=== PATIENT | male | born 1965 | race Caucasian/White ===

== ENCOUNTER 2018-11-10 09:00 | Outpatient (RCR) | payer BC, SELFPAY ==
[2018-10-13 11:22] VITALS: RESP 18
--- NOTE | 2018-10-13 13:07 | PCM.WC.PN ---
(1) Chronic ulcer of left foot with fat layer exposed Status: Chronic Current Visit: Yes Code(s): L97.522 - Non-pressure chronic ulcer of other part of left foot with fat layer exposed (2) Hammertoe of left foot Status: Chronic Current Visit: Yes Code(s): M20.42 - Other hammer toe(s) (acquired), left foot (3) Type 1 diabetes, uncontrolled, with neuropathy Status: Chronic Current Visit: Yes Code(s): E10.40 - Type 1 diabetes mellitus with diabetic neuropathy, unspecified; E10.65 - Type 1 diabetes mellitus with hyperglycemia (4) Malnutrition Status: Chronic Current Visit: Yes Code(s): E46 - Unspecified protein-calorie malnutrition (5) Other specified peripheral vascular diseases Status: Suspected Current Visit: Yes Code(s): I73.89 - Other specified peripheral vascular diseases (6) Delayed wound healing Status: Chronic Current Visit: Yes Code(s): T14.8XXD - Other injury of unspecified body region, subsequent encounter Type of Wound Date of Service: 10/13/18 Chief Complaint: Left foot ulcer History of Wound: This 52-year-old male with diabetes presented to the wound healing center for right ball of foot ulcer with an onset of over 1 month ago. He was walking in the sand in [place] and noticed drainage and opening. He also placed his glasses in his shoe and forgot they were in there for almost a day. He has been applying hydrogel to the ulcer site and continues to walk around in his athletic sneaker AGAINST MEDICAL ADVICE. He denies fever, chill, nausea, vomiting. He denies claudication. He does have rest paresthesias to the limbs. He does have a history of previous foot ulcers with recurrence and infection and delayed healing. Progress of Wound: Stable - Physical Exam Vital Signs Resp 18 10/13/18 11:22 General: Alert, Oriented x3, Cooperative, No apparent distress HEENT: Atraumatic Extremities: No cyanosis, No edema, Capillary Refill Less than 3 Seconds - All digits bilateral, No Calf Tenderness - Negative Brianna and Carter sign bilateral. Compartments remain soft to palpate bilateral lower extremities, Peripheral Pulses Normal - 2 out of 4 PT and DP pulses bilateral Skin: Ulcer/ Wound - No purulence, erythema, streaking, odor, infection. The ulcer bed is granular and pale. The peripheral skin is hairless and atrophic. Wound Measurements and Assessment - Nurse 1 - General Ulcer Measurement Start: 10/13/18 11:11 Freq: Status: Active Protocol: Activity Type Activity Date Activity User E-Sign Co-Sign Detail Recorded Client Recorded Date Recorded By Document 10/13/18 11:22 RI [id number] 10/13/18 11:37 RI 10/13/18 11:22 Wound Center Nurse 1 [Ulcer Assessment] #1 Left Plantar Cluster -Current Size (cm) - Length 3.5 -Current Size (cm) - Width 5.0 -Current Size (cm) - Depth 0.2 -Total Square Cm 17.50 -Date of Last Picture (Recall this 10/13/18 field) -Photo Taken Yes -Exudate Amt Small -Exudate Type Serous -Wound Margin Thickened & Rolled Under -Granulation Amt Large (67-100%) -Granulation Quality Pale,Red -Texture (Tanesha-wound Skin Appearance) Assessed,Callus -Moisture (Tanesha-wound Skin Appearance Assessed ) -Color (Tanesha-wound Skin Appearance) Assessed -Temperature (Tanesha-wound Skin No Abnormality Appearance) (Pt Warm) -Tenderness on Palpation (Tanesha-wound No Skin Appearance) -Ulcer Cleansing Rinsed/ Irrigated with Saline -Foul Odor after Cleansing No -Anesthetic Used 5% Lidocaine Gel - Nurse 2 - General Ulcer CM Notes Start: 10/13/18 11:11 Freq: Status: Active Protocol: Activity Type Activity Date Activity User E-Sign Co-Sign Detail Recorded Client Recorded Date Recorded By Document 10/13/18 11:49 [id number] 10/13/18 11:57 10/13/18 11:49 Wound Center Nurse 2 [Procedure/Treatment] -Time 11:49 -Correct Patient Yes -Correct Side, Site, Position Yes -Correct Procedure Yes -Procedure Performed Yes -Type of Procedure Debridement -Clinical Debridement Subcutaneous -Post Debridement Size (cm) - Length 1.9 -Post Debridement Size (cm) - Width 1.7 -Post Debridement Size (cm) - Depth 0.2 -Total Square Cm 3.23 -Wound/Ulcer Outcome Not Healed -Ulcer Cleansing Rinsed/ Irrigated with Saline -Foul Odor after Cleansing No -Bioengineered Tissue No -Bleeding Controlled with Pressure -Offloading Yes -Type of Offloading Total Contact Cast (TCC) -Treatment Response Procedure Tolerated Well [See Physician Procedure note for Specifics] Pain Scale: 0-10 Numeric [Pain] -Is Patient Pain Free? Yes Musculoskeletal: No Tenderness to Palpation of Joints or Extremities, Muscle Wasting, - - Dorsal contraction of lesser digits with prominent metatarsal head Neurological: - - Lack of epicritic sensation light touch consistent with neuropathy Psych/Mental Status: Normal Affect, Appropriate Debridement Note Post-Debridement Measurements/Treatment WC - Nurse 2 - General Ulcer CM Notes Start: 10/13/18 11:11 Freq: Status: Active Protocol: Activity Type Activity Date Activity User E-Sign Co-Sign Detail Recorded Client Recorded Date Recorded By Document 10/13/18 11:49 JF [id number] 10/13/18 11:57 [email or web address] 10/13/18 11:49 Wound Center Nurse 2 #1 Left Plantar Cluster -Time 11:49 -Correct Patient Yes -Correct Side, Site, Position Yes -Correct Procedure Yes -Procedure Performed Yes -Type of Procedure Debridement -Clinical Debridement Subcutaneous -Post Debridement Size (cm) - Length 1.9 -Post Debridement Size (cm) - Width 1.7 -Post Debridement Size (cm) - Depth 0.2 -Total Square Cm 3.23 -Wound/Ulcer Outcome Not Healed -Ulcer Cleansing Rinsed/ Irrigated with Saline -Foul Odor after Cleansing No -Bioengineered Tissue No -Bleeding Controlled with Pressure -Offloading Yes -Type of Offloading Total Contact Cast (TCC) -Treatment Response Procedure Tolerated Well Pain Scale: 0-10 Numeric Is Patient Pain Free? Yes Wound debrided: plantar foot Laterality: Left Wound Grade/Stage: grade 1 Type of Debridement: Excisional debridement Anesthesia Used: 5% Lidocaine Gel Depth: in the subcutaneous layer Percentage of wound debrided: 100 Instrument Used: #15 blade Tissue Removed: fibrous, devitalized subcutaneous, biofilm, slough Severity: Fat Layer Exposed Amount of bleeding with debridement: Mild Bleeding Controlled with: Pressure Patient tolerated procedure well Assessment/Plan Active Problems (Last Updated 10/13/18 @ 12:23 by Soumya Quiroga) Chronic ulcer of left foot with fat layer exposed (Chronic) Hammertoe of left foot (Chronic) Type 1 diabetes, uncontrolled, with neuropathy (Chronic) Malnutrition (Chronic) Delayed wound healing (Chronic) Assessment: Left foot ulcer grade 1, no infection. rule out small vessel disease or proximal occlusion of peripheral vascular disease. Hammer digit syndrome left foot. Delayed healing. Malnutrition. Type 1 diabetes with peripheral neuropathy Plan: I reviewed and discussed his case and his previous work-up. I referred him from the foot and ankle center. Subcutaneous excisional debridement was performed as on the clinical panel. Eleni was applied as well as a total contact cast. He does have strong palpable DP and PT pulses with no evidence of critical limb ischemia. The total contact cast applied according to standard protocol and well-padded manner. He tolerated this well and verbally consented. To keep this clean, dry, and intact until follow-up next week. I recommend application of advanced wound healing product, epi fix. The indication, purpose, planned application, anticipated healing time and management, risk, complications were discussed in detail. He understands and elects to proceed at this time. Prior authorization will be initiated. He understands it would be helpful if he can help obtain his medical documentation from the hospital he was seen at in [place]; this will be pursued. It is noted this is a chronic wound over 1 month duration and there is delayed healing. This is medically necessary for limb salvage. I recommend updating his basic lab work including CBC, CMP, hemoglobin A1c, and prealbumin. A foot x-ray was also ordered due to the chronicity of this ulcer. I do also recommend noninvasive vascular studies to screen for small vessel disease or proximal abnormalities. I will follow-up with these test results when he returns to clinic next week. He is reassured no local signs of infection or new ulcer sites are noted. I have prescribed him Daniel nutritional supplementation optimize healing. The purpose was described. I answered his questions. To return to the wound healing center 1 week or call sooner if there are any questions or concerns.
--- NOTE | 2018-10-15 14:50 | RAD_ITS ---
HISTORY: Third degree strauss to bottom of foot occurred end of August 2018. EXAM/TECHNIQUE: XR Foot Min 3 Views: Left. COMPARISON: None. FINDINGS: # of images incl. paperwork: 3 No fracture or dislocation or osseous destruction. Alignment anatomic. Mild degenerative changes. No acute findings in the soft tissues. Bandaging material obscures underlying detail. Calcific atherosclerosis. Plantar calcaneal spur. RAD/Foot min 3 Views IMPRESSION: No acute findings. at 2031 Reported and signed by: Jaiden Hackett MD Electronically Signed: Jaiden Hackett, at 20:30 EDT Tel , Service support ,
[2018-10-15 15:25] LABS: Absolute Lymphocyte Count 0.98 X10^3/ul (0.83-4.51); Absolute Neutrophil Count 3.1 X10^3/uL (2.0-7.7); Eosinophil# 0.15 X10^3/uL; Eosinophils% 3.2 % (0-5); Hematocrit 40.6 % (40-54); Hemoglobin 13.5 g/dl (13.0-16.5); Lymphocyte # 0.98 X10^3/ul (4.0); Lymphocyte % 21.1 % (19-41); Mean Corp Hgb Conc 33.3 g/gl (32-36); Mean Corpuscular Volume 87.3 fL (80-94); Monocyte# 0.45 X10^3/uL; Monocyte% 9.7 % (0-10); Neutrophil # 3.06 X10^3/uL (2.7-7.7); Neutrophil % 65.8 % (47-70); Platelet Count 161 K/mm3 (150-450); RBC Distribution Width CV 13.2 % (11.6-14.6); RBC Distribution Width SD 42.1 fl (35.1-43.9); Red Blood Count 4.65 M/mm3 (4.6-6.2); White Blood Count 4.7 K/mm3 (4.4-11.0)
[2018-10-15 15:46] LABS: Hemoglobin A1c 10.9 % (4.2-6.3)
[2018-10-15 15:47] LABS: POSITIVE COUNT NO; POSITIVE DIFFERENTIAL NO; POSITIVE MORPHOLOGY NO
[2018-10-15 16:41] LABS: ALB/GLOB Ratio 1.2 RATIO (0.9-2.4); AST(SGOT) 29 U/L (15-37); Alanine Aminotransfer ALT/SGPT 41 U/L (16-61); Albumin, Serum 3.5 g/dL (3.2-5.0); Alkaline Phosphatase 85 U/L (45-117); Anion Gap 8 (5-15); BUN 16 mg/dL (7-18); BUN/Creat Ratio 15.5 RATIO (10-20); Chloride 100 mmol/L (98-107); Creatinine, Serum 1.03 mg/dL (0.70-1.30); EST Glomerular Filtration Rate 81 mL/min (>60); Est Glom Filt Rate - Afr Amer 98 mL/min (>60); Globulin 2.8 g/dL (2.2-4.2); Glucose 260 mg/dL (74-106); Potassium 4.6 mmol/L (3.5-5.1); Prealbumin 19.2 mg/dL (20.0-40.0); Protein, Total 6.3 g/dL (6.4-8.2); Sodium Level 139 mmol/L (136-145)
[2018-10-20 10:58] VITALS: BP 120/71; PULSE 66; RESP 18; TEMP 36.7
--- NOTE | 2018-10-20 11:27 | PN.PCM_ITS ---
(1) Chronic ulcer of left foot with fat layer exposed Status: Chronic Current Visit: Yes Code(s): L97.522 - Non-pressure chronic ulcer of other part of left foot with fat layer exposed (2) Hammertoe of left foot Status: Chronic Current Visit: Yes Code(s): M20.42 - Other hammer toe(s) (acquired), left foot (3) Type 1 diabetes, uncontrolled, with neuropathy Status: Chronic Current Visit: Yes Code(s): E10.40 - Type 1 diabetes mellitus with diabetic neuropathy, unspecified; E10.65 - Type 1 diabetes allan litus with hyperglycemia (4) Malnutrition Status: Chronic Current Visit: Yes Code(s): E46 - Unspecified protein- calorie malnutrition (5) Other specified peripheral vascular diseases Status: Suspected Current Visit: Yes Code(s): I73.89 - Other specified peripheral vascular diseases (6) Delayed wound healing Status: Chronic Current Visit: Yes Code(s): T14.8XXD - Other injury of unspecified body region, subsequent encounter (7) Hammer toe of left foot Status: Chronic Current Visit: Yes Code(s): M20.42 - Other hammer toe(s) (acquired), left foot Type of Wound Date of Service: 10/20/18 Chief Complaint: Left foot ulcer History of Wound: This 52-year-old male with diabetes presented to the wound healing center for right ball of foot ulcer with an onset of over 1 month ago. He was walking in the sand in [place] and noticed drainage and opening. He also placed his glasses in his shoe and forgot they were in there for almost a day. He kept his total contact cast intact left lower extremity last week. He denies fever, chill, nausea, vomiting, new injuries, redness or odor. Progress of Wound: Improving - Physical Exam Vital Signs Temp Pulse Resp BP 98.1 F 66 18 120/71 10/20/18 10:58 10/20/18 10:58 10/20/18 10:58 10/20/18 10:58 General: Alert, Oriented x3, Cooperative, No apparent distress Extremities: No cyanosis, No edema, Capillary Refill Less than 3 Seconds, No Calf Tenderness - Negative Brianna and Carter bilateral, Diminished Peripheral Pulses, - - No pain with also manipulation and compartments are soft the left foot. There is dorsal contraction of lesser digits with prominent metatarsal head left Skin: Ulcer/ Wound - No purulence, erythema hamstring, odor, infection left. There is peripheral epithelialization noted there is no exposed deep tissue or eschar. The peripheral skin is hairless and atrophic to the left foot. There is no interdigital maceration. Wound Measurements and Assessment WC - Nurse 1 - General Ulcer Measurement Start: 10/13/18 11:11 Freq: Status: Active Protocol: Activity Type Activity Date Activity User E-Sign Co-Sign Detail Recorded Client Recorded Date Recorded By Document 10/20/18 10:58 RB [id number] 10/20/18 11:01 RB 10/20/18 10:58 Wound Center Nurse 1 [Ulcer Assessment] #1 Left Plantar Cluster -Combined with other wound No -Current Size (cm) - Length 0.8 -Current Size (cm) - Width 1.1 -Current Size (cm) - Depth 0.2 -Total Square Cm 0.88 -Photo Taken No -Tunneling No -Undermining/Tunneling No -Circular Undermining No -Exudate Amt Small -Exudate Type Serosanguineous -Wound Margin Thickened -Granulation Amt Large (67-100%) -Granulation Quality Mulberry -Slough/Fibrin Yes -Necrosis Amt Small (1-33%) -Necrotic Tissue Type Adherent Slough -Structure Exposed N/A -Texture (Tanesha-wound Skin Appearance) Assessed,Callus -Moisture (Tanesha-wound Skin Appearance Assessed ) -Color (Tanesha-wound Skin Appearance) Assessed -Temperature (Tanesha-wound Skin No Abnormality Appearance) (Pt Warm) -Tenderness on Palpation (Tanesha-wound No Skin Appearance) -Ulcer Cleansing Wound Cleanser -Foul Odor after Cleansing No -Anesthetic Used 5% Lidocaine Gel - Nurse 2 - General Ulcer CM Notes Start: 10/13/18 11:11 Freq: Status: Active Protocol: Activity Type Activity Date Activity User E-Sign Co-Sign Detail Recorded Client Recorded Date Recorded By Document 10/20/18 11:16 KAMARI [id number] 10/20/18 11:17 KAMARI 10/20/18 11:16 Wound Center Nurse 2 [Procedure/Treatment] -Time 11:17 -Correct Patient Yes -Correct Side, Site, Position Yes -Correct Procedure Yes -Procedure Performed Yes -Type of Procedure Debridement -Clinical Debridement Subcutaneous -Post Debridement Size (cm) - Length 0.9 -Post Debridement Size (cm) - Width 1.2 -Post Debridement Size (cm) - Depth 0.1 -Total Square Cm 1.08 -Wound/Ulcer Outcome Not Healed -Ulcer Cleansing Rinsed/ Irrigated with Saline -Foul Odor after Cleansing No -Bioengineered Tissue No -Bleeding Controlled with Pressure -Offloading No -Treatment Response Procedure Tolerated Well [See Physician Procedure note for Specifics] Pain Scale: 0-10 Numeric [Pain] -Is Patient Pain Free? Yes Musculoskeletal: No Tenderness to Palpation of Joints or Extremities, Muscle Wasting Neurological: - - Lack of normal epicritic sensation light touch consistent with neuropathy left foot Psych/Mental Status: Normal Affect, Appropriate Debridement Note Post-Debridement Measurements/Treatment WC - Nurse 2 - General Ulcer CM Notes Start: 10/13/18 11:11 Freq: Status: Active Protocol: Activity Type Activity Date Activity User E-Sign Co-Sign Detail Recorded Client Recorded Date Recorded By Document 10/13/18 11:49 [id number] 10/13/18 11:57 Document 10/20/18 11:16 [id number] 10/20/18 11:17 10/13/18 10/20/18 11:49 11:16 Wound Center Nurse 2 #1 Left Plantar Cluster -Time 11:49 11:17 -Correct Patient Yes Yes -Correct Side, Site, Position Yes Yes -Correct Procedure Yes Yes -Procedure Performed Yes Yes -Type of Procedure Debridement Debridement -Clinical Debridement Subcutaneous Subcutaneous -Post Debridement Size (cm) - Length 1.9 0.9 -Post Debridement Size (cm) - Width 1.7 1.2 -Post Debridement Size (cm) - Depth 0.2 0.1 -Total Square Cm 3.23 1.08 -Wound/Ulcer Outcome Not Healed Not Healed -Ulcer Cleansing Rinsed/ Rinsed/ Irrigated with Irrigated with Saline Saline -Foul Odor after Cleansing No No -Bioengineered Tissue No No -Bleeding Controlled with Pressure Pressure -Offloading Yes No -Type of Offloading Total Contact Cast (TCC) -Treatment Response Procedure Procedure Tolerated Well Tolerated Well Pain Scale: 0-10 Numeric Is Patient Pain Free? Yes Yes Wound debrided: plantar foot Laterality: Left Wound Grade/Stage: grade 1 Type of Debridement: Excisional debridement Anesthesia Used: 5% Lidocaine Gel Depth: in the subcutaneous layer Percentage of wound debrided: 100 Instrument Used: #15 blade Tissue Removed: Devitalized subcutaneous, fibers, biofilm, slough Severity: Fat Layer Exposed Amount of bleeding with debridement: Mild Bleeding Controlled with: Pressure Patient tolerated procedure well Assessment/Plan Clinical Impression(s) from Imaging Studies Foot X-Ray 10/15/18 14:50 IMPRESSION: No acute findings. at 2031 Reported and signed by: Jaiden Hackett MD Electronically Signed: Jaiden Hackett, at 20:30 EDT Tel , Service support , Active Problems (Last Updated 10/13/18 @ 12:23 by Soumya Quiroga) Chronic ulcer of left foot with fat layer exposed (Chronic) Hammertoe of left foot (Chronic) Type 1 diabetes, uncontrolled, with neuropathy (Chronic) Malnutrition (Chronic) Delayed wound healing (Chronic) Hammer toe of left foot (Chronic) Assessment: Left foot ulcer grade 1, no infection. rule out small vessel disease or proximal occlusion of peripheral vascular disease. Hammer digit syndrome left foot. Delayed healing. Malnutrition. Type 1 diabetes with peripheral neuropathy Plan: I reviewed and discussed his case and his previous work-up. Subcutaneous excisional debridement was performed as on the clinical panel. Eleni was applied as well as a total contact cast. He does have strong palpable DP and PT pulses with no evidence of critical limb ischemia. The total contact cast applied according to standard protocol and well-padded manner. He tolerated this well and verbally consented. To keep this clean, dry, and intact until follow-up next week. I recommend application of advanced wound healing product, epi fix. The indication, purpose, planned application, anticipated healing time and management, risk, complications were discussed in detail. He understands and elects to proceed at this time. Prior authorization will be initiated. His medical record request has been initiated from his emergency room visit in [place] and this is still pending. This application of advanced wound healing product, epi fix, medically necessary for limb salvage. I recommend updating his basic lab work including CBC, CMP, hemoglobin A1c, and prealbumin. This is reviewed with prealbumin of 19.2 and no other gross abnormalities with a CBC or CMP. His hemoglobin A1c was 10.9 and I recommend improved glycemic control. To continue Daniel supplementation optimize healing; this was started. A foot x-ray was also ordered due to the chronicity of this ulcer. No acute fracture dislocations or soft tissue emphysema were identified. Hammertoe contraction is noted as well as small vessel calcification. The total contact cast is also superimposed. I do also recommend noninvasive vascular studies to screen for small vessel disease or proximal abnormalities. This is still in the process of getting scheduled. He is reassured no local signs of infection or new ulcer sites are noted. I have prescribed him Daniel nutritional supplementation optimize healing. The purpose was described. I answered his questions. To return to the wound healing center 1 week or call sooner if there are any questions or concerns.
[2018-10-27 09:37] VITALS: BP 101/71; PULSE 71; RESP 16; TEMP 35.5
--- NOTE | 2018-10-27 13:39 | PN.PCM_ITS ---
(1) Chronic ulcer of left foot with fat layer exposed Status: Chronic Current Visit: Yes Code(s): L97.522 - Non-pressure chronic ulcer of other part of left foot with fat layer exposed (2) Type 1 diabetes, uncontrolled, with neuropathy Status: Chronic Current Visit: Yes Code(s): E10.40 - Type 1 diabetes mellitus with diabetic neuropathy, unspecified; E10.65 - Type 1 diabetes mellitus with hyperglycemia (3) Malnutrition Status: Chronic Current Visit: Yes Code(s): E46 - Unspecified protein- calorie malnutrition (4) Other specified peripheral vascular diseases Status: Suspected Current Visit: Yes Code(s): I73.89 - Other specified peripheral vascular diseases (5) Delayed wound healing Status: Chronic Current Visit: Yes Code(s): T14.8XXD - Other injury of unspecified body region, subsequent encounter (6) Hammer toe of left foot Status: Chronic Current Visit: Yes Code(s): M20.42 - Other hammer toe(s) (acquired), left foot Type of Wound Date of Service: 10/31/18 Chief Complaint: Left foot ulcer History of Wound: This 52-year-old male with diabetes presented to the wound healing center for right ball of foot ulcer with an onset of over 1 month ago. He was walking in the sand in [place] and noticed drainage and opening. He also placed his glasses in his shoe and forgot they were in there for almost a day. He kept his total contact cast intact left lower extremity last week. He denies fever, chill, nausea, vomiting, new injuries, redness or odor. He is scheduled to get noninvasive vascular studies performed tomorrow. Progress of Wound: Improving - Physical Exam Vital Signs Temp Pulse Resp BP 96 F L 71 16 101/71 10/27/18 09:37 10/27/18 09:37 10/27/18 09:37 10/27/18 09:37 General: Alert, Oriented x3, Cooperative, No apparent distress Extremities: No cyanosis, No edema, Capillary Refill Less than 3 Seconds, No Calf Tenderness - Negative Brianna and Carter signs bilateral, Peripheral Pulses Normal, - - Dorsal contraction of lesser digits bilateral with prominent meta tarsal heads Skin: Ulcer/ Wound - No purulence, erythema, streaking, odor, or infection. Peripheral skin is hairless atrophic. Wound Measurements and Assessment WC - Nurse 1 - General Ulcer Measurement Start: 10/13/18 11:11 Freq: Status: Active Protocol: Activity Type Activity Date Activity User E-Sign Co-Sign Detail Recorded Client Recorded Date Recorded By Document 10/27/18 09:37 [facility] [id number] 10/27/18 09:39 [facility] 10/27/18 09:37 Wound Center Nurse 1 [Ulcer Assessment] #1 Left Plantar Cluster -Combined with other wound No -Current Size (cm) - Length 0.8 -Current Size (cm) - Width 1 -Current Size (cm) - Depth 0.2 -Total Square Cm 0.8 -Photo Taken No -Epithelialization Small 1-33% -Tunneling No -Undermining/Tunneling No -Circular Undermining No -Exudate Amt Small -Exudate Type Serous -Wound Margin Flat & Intact -Granulation Amt Large (67-100%) -Granulation Quality [place] -Slough/Fibrin Yes -Necrosis Amt Small (1-33%) -Necrotic Tissue Type Adherent Slough -Texture (Tanesha-wound Skin Appearance) Callus,Scarring -Moisture (Tanesha-wound Skin Appearance Assessed,Dry/ ) Scaly -Color (Tanesha-wound Skin Appearance) Assessed -Temperature (Tanesha-wound Skin No Abnormality Appearance) (Pt Warm) -Tenderness on Palpation (Tanesha-wound No Skin Appearance) -Foul Odor after Cleansing No -Anesthetic Used 5% Lidocaine Gel WC - Nurse 2 - General Ulcer CM Notes Start: 10/13/18 11:11 Freq: Status: Active Protocol: Activity Type Activity Date Activity User E-Sign Co-Sign Detail Recorded Client Recorded Date Recorded By Document 10/27/18 09:44 AN [id number] 10/27/18 09:47 AN 10/27/18 09:44 Wound Center Nurse 2 [Procedure/Treatment] -Time 09:44 -Correct Patient Yes -Correct Side, Site, Position Yes -Correct Procedure Yes -Procedure Performed Yes -Type of Procedure Debridement -Clinical Debridement Subcutaneous -Post Debridement Size (cm) - Length 0.9 -Post Debridement Size (cm) - Width 1.1 -Post Debridement Size (cm) - Depth 0.2 -Total Square Cm 0.99 -Wound/Ulcer Outcome Not Healed -Ulcer Cleansing Rinsed/ Irrigated with Saline -Foul Odor after Cleansing No -Bioengineered Tissue No -Bleeding Controlled with Pressure -Offloading Yes -Type of Offloading Surgical Shoe -Treatment Response Procedure Tolerated Well [See Physician Procedure note for Specifics] Pain Scale: 0-10 Numeric [Pain] -Is Patient Pain Free? Yes Musculoskeletal: No Tenderness to Palpation of Joints or Extremities, Muscle Wasting Neurological: - - Lack of normal epicritic sensation light touch consistent with neuropathy Psych/Mental Status: Normal Affect, Appropriate Debridement Note Post-Debridement Measurements/Treatment WC - Nurse 2 - General Ulcer CM Notes Start: 10/13/18 11:11 Freq: Status: Active Protocol: Activity Type Activity Date Activity User E-Sign Co-Sign Detail Recorded Client Recorded Date Recorded By Document 10/13/18 11:49 [id number] 10/13/18 11:57 JF Document 10/20/18 11:16 JF [id number] 10/20/18 11:17 JF Document 10/27/18 09:44 AN [id number] 10/27/18 09:47 AN 10/13/18 10/20/18 10/27/18 11:49 11:16 09:44 Wound Center Nurse 2 #1 Left Plantar Cluster -Time 11:49 11:17 09:44 -Correct Patient Yes Yes Yes -Correct Side, Site, Position Yes Yes Yes -Correct Procedure Yes Yes Yes -Procedure Performed Yes Yes Yes -Type of Procedure Debridement Debridement Debridement -Clinical Debridement Subcutaneous Subcutaneous Subcutaneous -Post Debridement Size (cm) - Length 1.9 0.9 0.9 -Post Debridement Size (cm) - Width 1.7 1.2 1.1 -Post Debridement Size (cm) - Depth 0.2 0.1 0.2 -Total Square Cm 3.23 1.08 0.99 -Wound/Ulcer Outcome Not Healed Not Healed Not Healed -Ulcer Cleansing Rinsed/ Rinsed/ Rinsed/ Irrigated with Irrigated with Irrigated with Saline Saline Saline -Foul Odor after Cleansing No No No -Bioengineered Tissue No No No -Bleeding Controlled with Pressure Pressure Pressure -Offloading Yes No Yes -Type of Offloading Total Contact Surgical Shoe Cast (TCC) -Treatment Response Procedure Procedure Procedure Tolerated Well Tolerated Well Tolerated Well Pain Scale: 0-10 Numeric Is Patient Pain Free? Yes Yes Yes Wound debrided: plantar foot Laterality: Left Wound Grade/Stage: grade 1 Type of Debridement: Excisional debridement Anesthesia Used: 5% Lidocaine Gel Depth: in the subcutaneous layer Percentage of wound debrided: 100 Instrument Used: #15 blade Tissue Removed: fibrous, devitalized subcutaneous, biofilm, slough Severity: Fat Layer Exposed Amount of bleeding with debridement: Mild Bleeding Controlled with: Pressure Patient tolerated procedure well Assessment/Plan Clinical Impression(s) from Imaging Studies Foot X-Ray 10/15/18 14:50 IMPRESSION: No acute findings. at 2031 Reported and signed by: Jaiden Hackett MD Electronically Signed: Jaiden Hackett, at 20:30 EDT Tel , Service support , Active Problems (Last Updated 10/13/18 @ 12:23 by Soumya Quiroga) Chronic ulcer of left foot with fat layer exposed (Chronic) Hammertoe of left foot (Chronic) Type 1 diabetes, uncontrolled, with neuropathy (Chronic) Malnutrition (Chronic) Delayed wound healing (Chronic) Hammer toe of left foot (Chronic) Assessment: Left foot ulcer grade 1, no infection. rule out small vessel disease or proximal occlusion of peripheral vascular disease. Hammer digit syndrome left foot. Delayed healing. Malnutrition. Type 1 diabetes with peripheral neuropathy Plan: I reviewed and discussed his case and his previous work-up. Subcutaneous excisional debridement was performed as on the clinical panel. Eleni was applied; to change daily. To follow-up with a noninvasive exercise test tomorrow. Therefore, a total contact cast was not applied. This may reconsider next week. Keep weight off this patient with his previous surgical shoe. He r elates he cannot find his surgical shoe and the new one was ordered today. He is reassured no local signs of infection or new ulcer sites are noted. I have prescribed him Daniel nutritional supplementation optimize healing. The purpose was described. I answered his questions. To return to the wound healing center 1 week or call sooner if there are any questions or concerns.
--- NOTE | 2018-10-28 13:02 | ART_ITS ---
Reason For Study: chronic ulcer Left Segmental Pressures Left brachial= 119mmHg. Left posterior tibial artery = 168mmHg. Left dorsalis pedis artery = 205mmHg. Left digit = 119 mmHg. The left dorsalis pedis waveforms are triphasic. The left posterior tibial artery waveforms are triphasic. Right Segmental Pressures Right brachial= 123mmHg. Right posterior tibial artery = 162mmHg. Right digit = 132 mmHg. DPA is noncompressible. The right dorsalis pedis waveforms are triphasic. The right posterior tibial artery waveforms are triphasic. Indices The right ankle brachial index by the posterior tibial artery is 1.32. The right digital-brachial index is 1.07. DPA is noncompressible. The left ankle brachial index by the posterior tibial artery is 1.37. The left ankle brachial index by the dorsalis pedis is 1.67. The left digital-brachial index is .97. Interpretation Summary Triphasic Doppler waveforms are noted at ankle level bilaterally. Pulse-volume recording waveform amplitudes appear satisfactory bilaterally. The resting right ankle-brachial index is normal. The resting left ankle-brachial index is supra-normal. Digital-brachial indices are normal bilaterally. There is no evidence of significant arterial occlusive disease in the lower extremities bilaterally. However, there is evidence of arterial calcification, which may artifactually elevate arterial indices. In this regard, clinical correlation is advised. Ordering Physician: Fransisca Adams Performed By: RICK KAM Wilian
[2018-11-03 09:36] VITALS: BP 97/72; PULSE 69; RESP 16; TEMP 35.5
--- NOTE | 2018-11-03 10:30 | PN.PCM_ITS ---
(1) Chronic ulcer of left foot with fat layer exposed Status: Chronic Current Visit: Yes Code(s): L97.522 - Non-pressure chronic ulcer of other part of left foot with fat layer exposed (2) Type 1 diabetes, uncontrolled, with neuropathy Status: Chronic Current Visit: Yes Code(s): E10.40 - Type 1 diabetes mellitus with diabetic neuropathy, unspecified; E10.65 - Type 1 diabetes mellitus with hyperglycemia (3) Malnutrition Status: Chronic Current Visit: Yes Code(s): E46 - Unspecified protein- calorie malnutrition (4) Other specified peripheral vascular diseases Status: Suspected Current Visit: Yes Code(s): I73.89 - Other specified peripheral vascular diseases (5) Delayed wound healing Status: Chronic Current Visit: Yes Code(s): T14.8XXD - Other injury of unspecified body region, subsequent encounter (6) Hammer toe of left foot Status: Chronic Current Visit: Yes Code(s): M20.42 - Other hammer toe(s) (acquired), left foot Type of Wound Date of Service: 11/05/18 Chief Complaint: Left foot ulcer History of Wound: This 52-year-old male with diabetes presented to the wound healing center for right ball of foot ulcer with an onset of over 1 month ago. He was walking in the sand in [place] and noticed drainage and opening. He also placed his glasses in his shoe and forgot they were in there for almost a day. He defers total contact cast application today. He denies fever, chill, nausea, vomiting, new injuries, redness or odor. He completed noninvasive vascular studies as ordered. Progress of Wound: Improving - Physical Exam Vital Signs Temp Pulse Resp BP 96 F L 69 16 97/72 11/03/18 09:36 11/03/18 09:36 11/03/18 09:36 11/03/18 09:36 General: Alert, Oriented x3, Cooperative, No apparent distress Extremities: No cyanosis, No edema, Capillary Refill Less than 3 Seconds, No Calf Tenderness - Negative Brianna and Carter sign left, Peripheral Pulses Normal - DP bilateral, - - Dorsal contraction of lesser digits and prominent metatarsal head Skin: Ulcer/ Wound - No purulence, erythema, streaking, odor, infection. Peripheral epithelialization is noted. The adjacent skin is hairless and atrophic Wound Measurements and Assessment WC - Nurse 1 - General Ulcer Measurement Start: 10/13/18 11:11 Freq: Status: Active Protocol: Activity Type Activity Date Activity User E-Sign Co-Sign Detail Recorded Client Recorded Date Recorded By Document 11/03/18 09:36 [facility] [id number] 11/03/18 09:40 [facility] 11/03/18 09:36 Wound Center Nurse 1 [Ulcer Assessment] #1 Left Plantar Cluster -Combined with other wound No -Current Size (cm) - Length 0.4 -Current Size (cm) - Width 0.5 -Current Size (cm) - Depth 0.2 -Total Square Cm 0.20 -Photo Taken No -Epithelialization None Present -Tunneling No -Undermining/Tunneling Yes -Undermining/Tunneling Starts (O' 11 clock) -Undermining/Tunneling Ends (O'clock) 4 -Maximum Distance (cm) 0.2 -Circular Undermining No -Exudate Amt None Present -Wound Margin Distinct, Outline Attached -Granulation Amt Large (67-100%) -Granulation Quality [place] -Slough/Fibrin No -Necrosis Amt None Present (0 %) -Texture (Tanesha-wound Skin Appearance) Callus,Scarring -Moisture (Tanesha-wound Skin Appearance Assessed,Dry/ ) Scaly -Color (Tanesha-wound Skin Appearance) Assessed -Temperature (Tanesha-wound Skin No Abnormality Appearance) (Pt Warm) -Tenderness on Palpation (Tanesha-wound No Skin Appearance) -Ulcer Cleansing Rinsed/ Irrigated with Saline -Foul Odor after Cleansing No -Anesthetic Used 5% Lidocaine Gel EZ - Nurse 2 - General Ulcer CM Notes Start: 10/13/18 11:11 Freq: Status: Active Protocol: Activity Type Activity Date Activity User E-Sign Co-Sign Detail Recorded Client Recorded Date Recorded By Document 11/03/18 10:24 AN [id number] 11/03/18 10:25 AN 11/03/18 10:24 Wound Center Nurse 2 [Procedure/Treatment] -Time 10:24 -Correct Patient Yes -Correct Side, Site, Position Yes -Correct Procedure Yes -Procedure Performed Yes -Type of Procedure Debridement -Clinical Debridement Subcutaneous -Post Debridement Size (cm) - Length 0.5 -Post Debridement Size (cm) - Width 0.6 -Post Debridement Size (cm) - Depth 0.2 -Total Square Cm 0.30 -Wound/Ulcer Outcome Not Healed -Ulcer Cleansing Rinsed/ Irrigated with Saline -Foul Odor after Cleansing No -Bioengineered Tissue No -Bleeding Controlled with Pressure -Offloading No -Type of Offloading Surgical Shoe -Treatment Response Procedure Tolerated Well [See Physician Procedure note for Specifics] Pain Scale: 0-10 Numeric [Pain] -Is Patient Pain Free? Yes Musculoskeletal: No Tenderness to Palpation of Joints or Extremities, Muscle Wasting Neurological: - - Lack of normal epicritic sensation light touch consistent with neuropathy Psych/Mental Status: Normal Affect, Appropriate Debridement Note Post-Debridement Measurements/Treatment WC - Nurse 2 - General Ulcer CM Notes Start: 10/13/18 11:11 Freq: Status: Active Protocol: Activity Type Activity Date Activity User E-Sign Co-Sign Detail Recorded Client Recorded Date Recorded By Document 10/13/18 11:49 JF [id number] 10/13/18 11:57 JF Document 10/20/18 11:16 JF [id number] 10/20/18 11:17 JF Document 10/27/18 09:44 AN [id number] 10/27/18 09:47 AN Document 11/03/18 10:24 AN [id number] 11/03/18 10:25 AN 10/13/18 10/20/18 10/27/18 11:49 11:16 09:44 Wound Center Nurse 2 #1 Left Plantar Cluster -Time 11:49 11:17 09:44 -Correct Patient Yes Yes Yes -Correct Side, Site, Position Yes Yes Yes -Correct Procedure Yes Yes Yes -Procedure Performed Yes Yes Yes -Type of Procedure Debridement Debridement Debridement -Clinical Debridement Subcutaneous Subcutaneous Subcutaneous -Post Debridement Size (cm) - Length 1.9 0.9 0.9 -Post Debridement Size (cm) - Width 1.7 1.2 1.1 -Post Debridement Size (cm) - Depth 0.2 0.1 0.2 -Total Square Cm 3.23 1.08 0.99 -Wound/Ulcer Outcome Not Healed Not Healed Not Healed -Ulcer Cleansing Rinsed/ Rinsed/ Rinsed/ Irrigated with Irrigated with Irrigated with Saline Saline Saline -Foul Odor after Cleansing No No No -Bioengineered Tissue No No No -Bleeding Controlled with Pressure Pressure Pressure -Offloading Yes No Yes -Type of Offloading Total Contact Surgical Shoe Cast (TCC) -Treatment Response Procedure Procedure Procedure Tolerated Well Tolerated Well Tolerated Well Pain Scale: 0-10 Numeric Is Patient Pain Free? Yes Yes Yes 11/03/18 10:24 Wound Center Nurse 2 #1 Left Plantar Cluster -Time 10:24 -Correct Patient Yes -Correct Side, Site, Position Yes -Correct Procedure Yes -Procedure Performed Yes -Type of Procedure Debridement -Clinical Debridement Subcutaneous -Post Debridement Size (cm) - Length 0.5 -Post Debridement Size (cm) - Width 0.6 -Post Debridement Size (cm) - Depth 0.2 -Total Square Cm 0.30 -Wound/Ulcer Outcome Not Healed -Ulcer Cleansing Rinsed/ Irrigated with Saline -Foul Odor after Cleansing No -Bioengineered Tissue No -Bleeding Controlled with Pressure -Offloading No -Type of Offloading Surgical Shoe -Treatment Response Procedure Tolerated Well Pain Scale: 0-10 Numeric Is Patient Pain Free? Yes Wound debrided: sub metatarsal head Laterality: Left Wound Grade/Stage: grade 1 Type of Debridement: Excisional debridement Anesthesia Used: 5% Lidocaine Gel Depth: in the subcutaneous layer Percentage of wound debrided: 100 Instrument Used: #15 blade Tissue Removed: fibrous, devitalized subcutaneous, biofilm, slough Severity: Fat Layer Exposed Amount of bleeding with debridement: Mild Bleeding Controlled with: Pressure Patient tolerated procedure well Assessment/Plan Clinical Impression(s) from Imaging Studies Foot X-Ray 10/15/18 14:50 IMPRESSION: No acute findings. at 2031 Reported and signed by: Jaiden Hackett MD Electronically Signed: Jaiden Hackett, at 20:30 EDT Tel , Service support , Active Problems (Last Updated 10/13/18 @ 12:23 by Soumya Quiroga) Chronic ulcer of left foot with fat layer exposed (Chronic) Hammertoe of left foot (Chronic) Type 1 diabetes, uncontrolled, with neuropathy (Chronic) Malnutrition (Chronic) Delayed wound healing (Chronic) Hammer toe of left foot (Chronic) Assessment: Left foot ulcer grade 1, no infection. ruled out small vessel disease or proximal occlusion of peripheral vascular disease. Hammer digit syndrome left foot. Delayed healing. Malnutrition. Type 1 diabetes with peripheral neuropathy Plan: I reviewed and discussed his case and his previous work-up. Subcutaneous excisional debridement was performed as on the clinical panel. Eleni was applied; to change daily. He appears to have adequate perfusion for healing with normal ABIs. The noninvasive vascular studies were discussed in detail with him today. He defers additional application of total contact cast this week is recommended. Keep weight off this patient with his previous surgical shoe. He is reassured no local signs of infection or new ulcer sites are noted. I have prescribed him Daniel nutritional supplementation optimize healing. The purpose was described. I answered his questions. To return to the wound healing center 1 week or call sooner if there are any questions or concerns.
[2018-11-10 09:36] VITALS: BP 93/67; PULSE 75; RESP 14; TEMP 35.7
--- NOTE | 2018-11-10 11:39 | PN.PCM_ITS ---
(1) Chronic ulcer of left foot with fat layer exposed Status: Chronic Code(s): L97.522 - Non-pressure chronic ulcer of other part of left foot with fat layer exposed (2) Type 1 diabetes, uncontrolled, with neuropathy Status: Chronic Code(s): E10.40 - Type 1 diabetes mellitus with diabetic neuropathy, unspecified; E10.65 - Type 1 diabetes mellitus with hyperglycemia (3) Malnutrition Status: Chronic Code(s): E46 - Unspecified protein-calorie malnutrition (4) Other specified peripheral vascular diseases Status: Suspected Code(s): I73.89 - Other specified peripheral vascular diseases (5) Delayed wound healing Status: Chronic Code(s): T14.8XXD - Other injury of unspecified body region, subsequent encounter (6) Hammer toe of left foot Status: Chronic Code(s): M20.42 - Other hammer toe(s) (acquired), left foot Type of Wound Date of Service: 11/13/18 Chief Complaint: Left foot ulcer History of Wound: This 52-year-old male with diabetes returns to the wound healing center for left ball of foot ulcer. He denies fever, chill, nausea, vomiting, new injuries, redness or odor. Progress of Wound: Improving - Physical Exam Vital Signs Temp Pulse Resp BP 96.2 F L 75 14 93/67 11/10/18 09:36 11/10/18 09:36 11/10/18 09:36 11/10/18 09:36 General: Alert, Oriented x3, Cooperative, No apparent distress Extremities: No cyanosis, No edema, Capillary Refill Less than 3 Seconds, No Calf Tenderness, Diminished Peripheral Pulses Skin: Ulcer/ Wound - No purulence, erythema, streaking, odor, or infection. Peripheral epithelialization is noted. Wound Measurements and Assessment WC - Nurse 1 - General Ulcer Measurement Start: 10/13/18 11:11 Freq: Status: Active Protocol: Activity Type Activity Date Activity User E-Sign Co-Sign Detail Recorded Client Recorded Date Recorded By Document 11/10/18 09:36 [id number] 11/10/18 09:37 11/10/18 09:36 Wound Center Nurse 1 [Ulcer Assessment] #1 Left Plantar Cluster -Combined with other wound No -Current Size (cm) - Length 0.1 -Current Size (cm) - Width 0.1 -Current Size (cm) - Depth 0.1 -Total Square Cm 0.01 -Photo Taken No -Epithelialization Large 67-100% -Tunneling No -Undermining/Tunneling No -Circular Undermining No -Exudate Amt None Present -Wound Margin Distinct, Outline Attached -Granulation Amt None Present (0 %) -Granulation Quality N/A -Slough/Fibrin Yes -Necrosis Amt None Present (0 %) -Necrotic Tissue Type Adherent Slough -Structure Exposed None/Limited to Skin Breakdown -Texture (Tanesha-wound Skin Appearance) Callus -Moisture (Tanesha-wound Skin Appearance No Abnormality, ) Assessed -Color (Tanesha-wound Skin Appearance) No Abnormality, Assessed -Temperature (Tanesha-wound Skin No Abnormality Appearance) (Pt Warm) -Tenderness on Palpation (Tanesha-wound No Skin Appearance) -Ulcer Cleansing Rinsed/ Irrigated with Saline -Foul Odor after Cleansing No -Anesthetic Used 4% Lidocaine Solution [Edema Assessment] -Lower Limb Edema Present NA WC - Nurse 2 - General Ulcer CM Notes Start: 10/13/18 11:11 Freq: Status: Active Protocol: Activity Type Activity Date Activity User E-Sign Co-Sign Detail Recorded Client Recorded Date Recorded By Document 11/10/18 09:48 AN [id number] 11/10/18 09:49 AN 11/10/18 09:48 Wound Center Nurse 2 [Procedure/Treatment] #1 Left Plantar Cluster -Time 09:48 -Correct Patient Yes -Correct Side, Site, Position Yes -Correct Procedure Yes -Procedure Performed Yes -Type of Procedure Debridement -Clinical Debridement Subcutaneous -Post Debridement Size (cm) - Length 0.2 -Post Debridement Size (cm) - Width 0.2 -Post Debridement Size (cm) - Depth 0.1 -Total Square Cm 0.04 -Wound/Ulcer Outcome Not Healed -Ulcer Cleansing Rinsed/ Irrigated with Saline -Foul Odor after Cleansing No -Bioengineered Tissue No -Bleeding Controlled with Pressure -Offloading Yes -Type of Offloading Surgical Shoe -Treatment Response Procedure Tolerated Well [See Physician Procedure note for Specifics] Pain Scale: 0-10 Numeric [Pain] -Is Patient Pain Free? Yes Musculoskeletal: No Tenderness to Palpation of Joints or Extremities, Muscle Wasting, - - Dorsal contraction of lesser toes and prominent metatarsal head region Neurological: - - Lack of normal epicritic sensation consistent with neuropathy Psych/Mental Status: Normal Affect, Appropriate Debridement Note Post-Debridement Measurements/Treatment WC - Nurse 2 - General Ulcer CM Notes Start: 10/13/18 11:11 Freq: Status: Active Protocol: Activity Type Activity Date Activity User E-Sign Co-Sign Detail Recorded Client Recorded Date Recorded By Document 10/13/18 11:49 KAMARI [id number] 10/13/18 11:57 JF Document 10/20/18 11:16 JF [id number] 10/20/18 11:17 JF Document 10/27/18 09:44 AN [id number] 10/27/18 09:47 AN Document 11/03/18 10:24 AN [id number] 11/03/18 10:25 AN Document 11/10/18 09:48 AN [id number] 11/10/18 09:49 AN 10/13/18 10/20/18 10/27/18 11:49 11:16 09:44 Wound Center Nurse 2 #1 Left Plantar Cluster -Time 11:49 11:17 09:44 -Correct Patient Yes Yes Yes -Correct Side, Site, Position Yes Yes Yes -Correct Procedure Yes Yes Yes -Procedure Performed Yes Yes Yes -Type of Procedure Debridement Debridement Debridement -Clinical Debridement Subcutaneous Subcutaneous Subcutaneous -Post Debridement Size (cm) - Length 1.9 0.9 0.9 -Post Debridement Size (cm) - Width 1.7 1.2 1.1 -Post Debridement Size (cm) - Depth 0.2 0.1 0.2 -Total Square Cm 3.23 1.08 0.99 -Wound/Ulcer Outcome Not Healed Not Healed Not Healed -Ulcer Cleansing Rinsed/ Rinsed/ Rinsed/ Irrigated with Irrigated with Irrigated with Saline Saline Saline -Foul Odor after Cleansing No No No -Bioengineered Tissue No No No -Bleeding Controlled with Pressure Pressure Pressure -Offloading Yes No Yes -Type of Offloading Total Contact Surgical Shoe Cast (TCC) -Treatment Response Procedure Procedure Procedure Tolerated Well Tolerated Well Tolerated Well Pain Scale: 0-10 Numeric Is Patient Pain Free? Yes Yes Yes 11/03/18 11/10/18 10:24 09:48 Wound Center Nurse 2 #1 Left Plantar Cluster -Time 10:24 09:48 -Correct Patient Yes Yes -Correct Side, Site, Position Yes Yes -Correct Procedure Yes Yes -Procedure Performed Yes Yes -Type of Procedure Debridement Debridement -Clinical Debridement Subcutaneous Subcutaneous -Post Debridement Size (cm) - Length 0.5 0.2 -Post Debridement Size (cm) - Width 0.6 0.2 -Post Debridement Size (cm) - Depth 0.2 0.1 -Total Square Cm 0.30 0.04 -Wound/Ulcer Outcome Not Healed Not Healed -Ulcer Cleansing Rinsed/ Rinsed/ Irrigated with Irrigated with Saline Saline -Foul Odor after Cleansing No No -Bioengineered Tissue No No -Bleeding Controlled with Pressure Pressure -Offloading No Yes -Type of Offloading Surgical Shoe Surgical Shoe -Treatment Response Procedure Procedure Tolerated Well Tolerated Well Pain Scale: 0-10 Numeric Is Patient Pain Free? Yes Yes Wound debrided: plantar forefoot Laterality: Left Wound Grade/Stage: grade 1 Type of Debridement: Excisional debridement Anesthesia Used: 5% Lidocaine Gel Depth: in the subcutaneous layer Percentage of wound debrided: 100 Instrument Used: #15 blade Tissue Removed: fibrous, devitalized subcutaneous, biofilm, slough Severity: Fat Layer Exposed Amount of bleeding with debridement: Mild Bleeding Controlled with: Pressure Patient tolerated procedure well Assessment/Plan Clinical Impression(s) from Imaging Studies Foot X-Ray 10/15/18 14:50 IMPRESSION: No acute findings. at 2031 Reported and signed by: Jaiden Hackett MD Electronically Signed: Jaiden Hackett, at 20:30 EDT Tel , Service support , Assessment: Left foot ulcer grade 1, no infection. ruled out small vessel disease or proximal occlusion of peripheral vascular disease. Hammer digit s yndrome left foot. Delayed healing. Malnutrition. Type 1 diabetes with peripheral neuropathy Plan: I reviewed and discussed his case and his previous work-up. Subcutaneous excisional debridement was performed as on the clinical panel. to change daily with hydrogel. He appears to have adequate perfusion for healing with normal ABIs. The noninvasive vascular studies were discussed in detail with him today. He defers additional application of total contact cast this week is recommended. Keep weight off this patient with his previous surgical shoe. He is reassured no local signs of infection or new ulcer sites are noted. I have prescribed him Daniel nutritional supplementation optimize healing. The purpose was described. I answered his questions. To return to the wound healing center 1 week or call sooner if there are any questions or concerns.
== END 2018-11-10 23:59 ==
LOC: WC 09:00
PROVIDERS: Family Provider Family Medicine; PCP Family Medicine; Referring Provider Podiatrist; Visit Provider Podiatrist
DX: E10.621 Type 1 diabetes mellitus with foot ulcer (principal); E10.65 Type 1 diabetes mellitus with hyperglycemia; L97.522 Non-pressure chronic ulcer of other part of left foot with fat layer exposed; M20.42 Other hammer toe(s) (acquired), left foot; E10.51 Type 1 diabetes mellitus with diabetic peripheral angiopathy without gangrene; E10.42 Type 1 diabetes mellitus with diabetic polyneuropathy
CPT/HCPCS: 11042; 29445; 36415; 73630; 80053; 83036; 84134; 85025; 93923; 99213; G0463

== ENCOUNTER 2018-12-08 09:00 | Outpatient (RCR) | payer BC, SELFPAY ==
[2016-04-17 10:29] VITALS: BMI 21.1
[2018-11-11 00:16] VITALS: BP 93/67; PULSE 75; RESP 14; TEMP 35.7
[2018-11-17 09:17] VITALS: BP 123/75; PULSE 71; RESP 18; TEMP 36.1; BMI 21.1
--- NOTE | 2018-11-17 13:04 | PN.PCM_ITS ---
(1) Ulcer of right foot with fat layer exposed Status: Acute Current Visit: Yes Code(s): L97.512 - Non-pressure chronic ulcer of other part of right foot with fat layer exposed (2) Former smoker Status: Chronic Current Visit: Yes Code(s): Z87.891 - Personal history of nicotine dependence Comment: Z87.891 (3) Chronic ulcer of left foot with fat layer exposed Status: Resolved Current Visit: Yes Code(s): L97.522 - Non-pressure chronic ulcer of other part of left foot with fat layer exposed (4) Type 1 diabetes, uncontrolled, with neuropathy Status: Chronic Current Visit: Yes Code(s): E10.40 - Type 1 diabetes mellitus with diabetic neuropathy, unspecified; E10.65 - Type 1 diabetes mellitus with hyperglycemia (5) Malnutrition Status: Chronic Current Visit: Yes Code(s): E46 - Unspecified protein- calorie malnutrition Type of Wound Date of Service: 11/17/18 Chief Complaint: Left foot ulcer History of Wound: This 52-year-old male with diabetes returns to the wound healing center for left ball of foot ulcer. He denies fever, chill, nausea, vomiting, new injuries, redness or odor. He denies drainage and thinks his ulcer site has healed. He reports a new opening on the right foot this past week. He denies redness or odor. He denies known trauma. Progress of Wound: Healed left. New right foot ulcer stable - Physical Exam Vital Signs Temp Pulse Resp BP 96.9 F L 71 18 123/75 H 11/17/18 09:17 11/17/18 09:17 11/17/18 09:17 11/17/18 09:17 General: Alert, Oriented x3, Cooperative, No apparent distress Extremities: No cyanosis, Capillary Refill Less than 3 Seconds, No Calf Tenderness, Diminished Peripheral Pulses, Edema - Mild, - Skin: Ulcer/ Wound - Full epithelialization noted to left foot this site has healed. There is new skin discontinuity with fat layer exposed on the right submetatarsal head sulcus lateral area. There is no infection or streaking. Granular and fibrous tissues noted. No necrosis or deep probing. Wound Measurements and Assessment WC - Nurse 1 - General Ulcer Measurement Start: 11/17/18 09:17 Freq: Status: Active Protocol: Activity Type Activity Date Activity User E-Sign Co-Sign Detail Recorded Client Recorded Date Recorded By Document 11/17/18 09:17 DL [id number] 11/17/18 09:22 DL 11/17/18 09:17 Wound Center Nurse 1 [Ulcer Assessment] #1 Left Plantar Cluster -Current Size (cm) - Length 0.1 -Current Size (cm) - Width 0.1 -Current Size (cm) - Depth 0.1 -Total Square Cm 0.01 -Photo Taken Yes -Exudate Amt None Present -Wound Margin Flat & Intact -Granulation Amt Large (67-100%) -Granulation Quality Pale,[place] -Necrosis Amt None Present (0 %) -Structure Exposed N/A -Texture (Tanesha-wound Skin Appearance) Callus,Scarring -Moisture (Tanesha-wound Skin Appearance Dry/Scaly ) -Color (Tanesha-wound Skin Appearance) No Abnormality -Temperature (Tanesha-wound Skin No Abnormality Appearance) (Pt Warm) -Tenderness on Palpation (Tanesha-wound No Skin Appearance) -Ulcer Cleansing Rinsed/ Irrigated with Saline -Foul Odor after Cleansing No WC - Nurse 2 - General Ulcer CM Notes Start: 11/17/18 09:17 Freq: Status: Active Protocol: Activity Type Activity Date Activity User E-Sign Co-Sign Detail Recorded Client Recorded Date Recorded By Document 11/17/18 09:31 DL [id number] 11/17/18 09:32 DL 11/17/18 09:31 Wound Center Nurse 2 [Procedure/Treatment] #2 right DFU plantar -Time 09:32 -Correct Patient Yes -Correct Side, Site, Position Yes -Correct Procedure Yes -Procedure Performed Yes -Type of Procedure Debridement -Clinical Debridement Subcutaneous -Post Debridement Size (cm) - Length 0.5 -Post Debridement Size (cm) - Width 0.5 -Post Debridement Size (cm) - Depth 0.1 -Total Square Cm 0.25 -Wound/Ulcer Outcome Not Healed -Ulcer Cleansing Rinsed/ Irrigated with Saline -Foul Odor after Cleansing No -Bioengineered Tissue No -Bleeding Controlled with Pressure -Offloading Yes -Type of Offloading Surgical Shoe -Treatment Response Procedure Tolerated Well [See Physician Procedure note for Specifics] Pain Scale: 0-10 Numeric [Pain] -Is Patient Pain Free? Yes Musculoskeletal: No Tenderness to Palpation of Joints or Extremities, Muscle Wasting, - - Dorsal contracture lesser toes with prominent metatarsal heads Neurological: - - Lack of normal vibratory sensation light touch consistent with neuropathy Psych/Mental Status: Normal Affect, Appropriate Debridement Note Post-Debridement Measurements/Treatment WC - Nurse 2 - General Ulcer CM Notes Start: 11/17/18 09:17 Freq: Status: Active Protocol: Activity Type Activity Date Activity User E-Sign Co-Sign Detail Recorded Client Recorded Date Recorded By Document 11/17/18 09:31 DL [id number] 11/17/18 09:32 DL 11/17/18 09:31 Wound Center Nurse 2 #2 right DFU plantar -Time 09:32 -Correct Patient Yes -Correct Side, Site, Position Yes -Correct Procedure Yes -Procedure Performed Yes -Type of Procedure Debridement -Clinical Debridement Subcutaneous -Post Debridement Size (cm) - Length 0.5 -Post Debridement Size (cm) - Width 0.5 -Post Debridement Size (cm) - Depth 0.1 -Total Square Cm 0.25 -Wound/Ulcer Outcome Not Healed -Ulcer Cleansing Rinsed/ Irrigated with Saline -Foul Odor after Cleansing No -Bioengineered Tissue No -Bleeding Controlled with Pressure -Offloading Yes -Type of Offloading Surgical Shoe -Treatment Response Procedure Tolerated Well Pain Scale: 0-10 Numeric Is Patient Pain Free? Yes Wound debrided: sub metatarsal head sulcus Laterality: Right Wound Grade/Stage: grade 1 Type of Debridement: Excisional debridement Anesthesia Used: 5% Lidocaine Gel Depth: in the subcutaneous layer Percentage of wound debrided: 100 Instrument Used: #15 blade Tissue Removed: fibrous, devitalized subcutaneous, biofilm, slough Severity: Fat Layer Exposed Amount of bleeding with debridement: Mild Bleeding Controlled with: Pressure Patient tolerated procedure well Assessment/Plan Active Problems (Last Updated 10/13/18 @ 12:23 by Soumya Quiroga) Former smoker (Chronic) Z87.891 Type 1 diabetes, uncontrolled, with neuropathy (Chronic) Malnutrition (Chronic) Ulcer of right foot with fat layer exposed (Acute) Assessment: Left foot ulcer grade 1, no infection. ruled out small vessel disease or proximal occlusion of peripheral vascular disease. Hammer digit syndrome left foot. Delayed healing. Malnutrition. Type 1 diabetes with peripheral neuropathy Plan: I reviewed and discussed his case and his previous work-up. Subcutaneous excisional debridement was performed as on the clinical panel to the new ulcer site on the right foot. To change daily with hydrogel. He appears to have adequate perfusion for healing with normal ABIs. The noninvasive vascular studies were discussed in detail with him previously. His left foot is healed today with full epithelialization. To discontinue dressing care. He is reassured no local signs of infection or new ulcer sites are noted. I have prescribed him Daniel nutritional supplementation optimize healing. The purpose was described. I answered his questions. To return to the wound healing center 1 week or call sooner if there are any questions or concerns.
[2018-12-01 09:39] VITALS: BP 94/62; PULSE 68; RESP 18; TEMP 36.2; BMI 21.1
--- NOTE | 2018-12-01 13:04 | PN.PCM_ITS ---
(1) Chronic ulcer of left foot with fat layer exposed Status: Acute Current Visit: Yes Code(s): L97.522 - Non-pressure chronic ulcer of other part of left foot with fat layer exposed (2) Ulcer of right foot with fat layer exposed Status: Resolved Current Visit: Yes Code(s): L97.512 - Non-pressure chronic ulcer of other part of right foot with fat layer exposed (3) Former smoker Status: Chronic Current Visit: Yes Code(s): Z87.891 - Personal history of nicotine dependence Comment: Z87.891 (4) Type 1 diabetes, uncontrolled, with neuropathy Status: Chronic Current Visit: Yes Code(s): E10.40 - Type 1 diabetes mellitus with diabetic neuropathy, unspecified; E10.65 - Type 1 diabetes mellitus with hyperglycemia (5) Malnutrition Status: Chronic Current Visit: Yes Code(s): E46 - Unspecified protein- calorie malnutrition Type of Wound Date of Service: 12/01/18 Chief Complaint: Left foot ulcer new. Healed right foot ulcer History of Wound: This 52-year-old male with diabetes returns to the wound healing center for left ball of foot ulcer. He denies fever, chill, nausea, vomiting, new injuries, redness or odor. He denies drainage and thinks his ulcer site has healed. He denies redness or odor. He denies known trauma. The right foot ulcer site is no longer draining the site has healed. He relates that he has a new skin tears to the left foot and the original ulcer site remains. He was picking at his left foot 2 days ago. He denies redness odor. Progress of Wound: Healed right. New left foot ulcer stable;this is consistent with a skin tear - Physical Exam Vital Signs Temp Pulse Resp BP 97.2 F L 68 18 94/62 12/01/18 09:39 12/01/18 09:39 12/01/18 09:39 12/01/18 09:39 General: Alert, Oriented x3, Cooperative, No apparent distress Extremities: No cyanosis, No edema, Capillary Refill Less than 3 Seconds, No Calf Tenderness - Negative Brianna and Carter sign bilateral, Diminished Peripheral Pulses, - - Dorsal contraction of digits with prominent metatarsal head bilateral Skin: Ulcer/ Wound - No purulence, erythema, streaking, odor, infection bilateral. There is full epithelialization noted to the right side in the original left foot ulcer site. There is no skin tear was noted to the plantar central lateral left foot with no signs of infection. There is some hemorrhagic granulation tissue noted; reported onset 2 days ago, - - The skin integrity is hairless and atrophic. There is no maceration Wound Measurements and Assessment WC - Nurse 1 - General Ulcer Measurement Start: 11/17/18 09:17 Freq: Status: Active Protocol: Activity Type Activity Date Activity User E-Sign Co-Sign Detail Recorded Client Recorded Date Recorded By Document 12/01/18 09:39 RB [id number] 12/01/18 09:44 RB 12/01/18 09:39 Wound Center Nurse 1 [Ulcer Assessment] #2 right DFU plantar -Combined with other wound No -Current Size (cm) - Length 0.1 -Current Size (cm) - Width 0.1 -Current Size (cm) - Depth 0.1 -Total Square Cm 0.01 -Tunneling No -Undermining/Tunneling No -Circular Undermining No -Exudate Amt None Present -Wound Margin Distinct, Outline Attached -Granulation Amt Large (67-100%) -Granulation Quality [place] -Slough/Fibrin Yes -Necrosis Amt Small (1-33%) -Necrotic Tissue Type Adherent Slough -Structure Exposed N/A -Texture (Tanesha-wound Skin Appearance) Callus -Moisture (Tanesha-wound Skin Appearance Assessed ) -Color (Tanesha-wound Skin Appearance) Assessed -Temperature (Tanesha-wound Skin No Abnormality Appearance) (Pt Warm) -Tenderness on Palpation (Tanesha-wound No Skin Appearance) -Ulcer Cleansing Wound Cleanser -Foul Odor after Cleansing No -Anesthetic Used 5% Lidocaine Gel WC - Nurse 2 - General Ulcer CM Notes Start: 11/17/18 09:17 Freq: Status: Active Protocol: Activity Type Activity Date Activity User E-Sign Co-Sign Detail Recorded Client Recorded Date Recorded By Document 12/01/18 09:53 AN [id number] 12/01/18 09:55 AN 12/01/18 09:53 Wound Center Nurse 2 [Procedure/Treatment] #3 left plantar trauma -Time 09:54 -Correct Patient Yes -Correct Side, Site, Position Yes -Correct Procedure Yes -Procedure Performed No -Wound/Ulcer Outcome Not Healed -Ulcer Cleansing Rinsed/ Irrigated with Saline -Foul Odor after Cleansing No -Bioengineered Tissue No -Offloading Yes -Type of Offloading Surgical Shoe -Treatment Response Procedure Tolerated Well [See Physician Procedure note for Specifics] Pain Scale: 0-10 Numeric [Pain] -Is Patient Pain Free? Yes Musculoskeletal: No Tenderness to Palpation of Joints or Extremities, Muscle Wasting Neurological: - - Lack of normal epicritic sensation light touch is consistent with neuropathy Psych/Mental Status: Normal Affect, Appropriate Debridement Note Post-Debridement Measurements/Treatment WC - Nurse 2 - General Ulcer CM Notes Start: 11/17/18 09:17 Freq: Status: Active Protocol: Activity Type Activity Date Activity User E-Sign Co-Sign Detail Recorded Client Recorded Date Recorded By Document 11/17/18 09:31 DL [id number] 11/17/18 09:32 DL Document 12/01/18 09:53 AN [id number] 12/01/18 09:55 AN 11/17/18 12/01/18 09:31 09:53 Wound Center Nurse 2 #3 left plantar trauma -Time 09:54 -Correct Patient Yes -Correct Side, Site, Position Yes -Correct Procedure Yes -Procedure Performed No -Wound/Ulcer Outcome Not Healed -Ulcer Cleansing Rinsed/ Irrigated with Saline -Foul Odor after Cleansing No -Bioengineered Tissue No -Offloading Yes -Type of Offloading Surgical Shoe -Treatment Response Procedure Tolerated Well #2 right DFU plantar -Time 09:32 -Correct Patient Yes -Correct Side, Site, Position Yes -Correct Procedure Yes -Procedure Performed Yes -Type of Procedure Debridement -Clinical Debridement Subcutaneous -Post Debridement Size (cm) - Length 0.5 -Post Debridement Size (cm) - Width 0.5 -Post Debridement Size (cm) - Depth 0.1 -Total Square Cm 0.25 -Wound/Ulcer Outcome Not Healed -Ulcer Cleansing Rinsed/ Irrigated with Saline -Foul Odor after Cleansing No -Bioengineered Tissue No -Bleeding Controlled with Pressure -Offloading Yes -Type of Offloading Surgical Shoe -Treatment Response Procedure Tolerated Well Pain Scale: 0-10 Numeric Is Patient Pain Free? Yes Yes No debridement was completed today Assessment/Plan Active Problems (Last Updated 10/13/18 @ 12:23 by Soumya Quiroga) Former smoker (Chronic) Z87.891 Chronic ulcer of left foot with fat layer exposed (Acute) Type 1 diabetes, uncontrolled, with neuropathy (Chronic) Malnutrition (Chronic) Assessment: Left foot ulcer grade 1, new (skin tear). Healed right foot ulcer. ruled out small vessel disease or proximal occlusion of peripheral vascular disease. Hammer digit syndrome left foot. Delayed healing. Malnutrition. Type 1 diabetes with peripheral neuropathy Plan: I reviewed and discussed his case and his previous work-up. No debridement was performed today. It is noted that the right foot ulcer has healed and the initial left foot ulcer ulcer remains healed. He has a new skin tear skin discontinued to the left foot and was advised to change daily with hydrogel. He appears to have adequate perfusion for healing with normal ABIs. The noninvasive vascular studies were discussed in detail with him previously. His left foot is healed today with full epithelialization. To discontinue dressing care. He is reassured no local signs of infection or new ulcer sites are noted. I have prescribed him Daniel nutritional supplementation optimize healing. The purpose was described. I answered his questions. To return to the wound healing center 1 week or call sooner if there are any questions or concerns.
[2018-12-08 09:13] VITALS: BP 100/64; PULSE 80; RESP 18; TEMP 36; BMI 21.1
--- NOTE | 2018-12-08 10:16 | PN.PCM_ITS ---
(1) Chronic ulcer of left foot with fat layer exposed Status: Acute Current Visit: Yes Code(s): L97.522 - Non-pressure chronic ulcer of other part of left foot with fat layer exposed (2) Ulcer of right foot with fat layer exposed Status: Resolved Current Visit: Yes Code(s): L97.512 - Non-pressure chronic ulcer of other part of right foot with fat layer exposed (3) Former smoker Status: Chronic Current Visit: Yes Code(s): Z87.891 - Personal history of nicotine dependence Comment: Z87.891 (4) Type 1 diabetes, uncontrolled, with neuropathy Status: Chronic Current Visit: Yes Code(s): E10.40 - Type 1 diabetes mellitus with diabetic neuropathy, unspecified; E10.65 - Type 1 diabetes mellitus with hyperglycemia (5) Malnutrition Status: Chronic Current Visit: Yes Code(s): E46 - Unspecified protein- calorie malnutrition Type of Wound Date of Service: 12/08/18 Chief Complaint: Left foot ulcer new. Healed right foot ulcer History of Wound: This 52-year-old male with diabetes returns to the wound healing center for left ball of foot ulcer. He denies fever, chill, nausea, vomiting, new injuries, redness or odor. He denies drainage and thinks his ulcer site has healed. He denies redness or odor. He denies known trauma. The right foot ulcer site is no longer draining the site has healed. He relates that he has a new skin tears to the left foot and the original ulcer site remains. He was picking at his left foot 2 days ago. He denies redness odor. Progress of Wound: Stable left foot ulcer - Physical Exam Vital Signs Temp Pulse Resp BP 96.8 F L 80 18 100/64 12/08/18 09:13 12/08/18 09:13 12/08/18 09:13 12/08/18 09:13 General: Alert, Oriented x3, Cooperative, No apparent distress Extremities: No cyanosis, No edema, Capillary Refill Less than 3 Seconds, No Calf Tenderness, Diminished Peripheral Pulses, - - Decreased ankle dorsiflexion bilateral. Dorsal contraction with prominent metatarsal head noted Skin: Ulcer/ Wound - No purulence, erythema, induration, streaking, odor, infection or deep tissue exposure. The peripheral skin is hairless and atrophic. Wound Measurements and Assessment WC - Nurse 1 - General Ulcer Measurement Start: 11/17/18 09:17 Freq: Status: Active Protocol: Activity Type Activity Date Activity User E-Sign Co-Sign Detail Recorded Client Recorded Date Recorded By Document 12/08/18 09:13 [id number] 12/08/18 09:16 12/08/18 09:13 Wound Center Nurse 1 [Ulcer Assessment] #3 left plantar trauma -Combined with other wound No -Current Size (cm) - Length 0.4 -Current Size (cm) - Width 0.1 -Current Size (cm) - Depth 0.2 -Total Square Cm 0.04 -Photo Taken No -Epithelialization Small 1-33% -Tunneling No -Undermining/Tunneling No -Circular Undermining No -Exudate Amt None Present -Wound Margin Flat & Intact -Granulation Amt Large (67-100%) -Granulation Quality Red -Slough/Fibrin Yes -Necrosis Amt Small (1-33%) -Necrotic Tissue Type Adherent Slough -Structure Exposed N/A -Texture (Tanesha-wound Skin Appearance) Assessed,Callus -Moisture (Tanesha-wound Skin Appearance Assessed,Dry/ ) Scaly -Color (Tanesha-wound Skin Appearance) Assessed -Temperature (Tanesha-wound Skin No Abnormality Appearance) (Pt Warm) -Tenderness on Palpation (Tanesha-wound No Skin Appearance) -Ulcer Cleansing Rinsed/ Irrigated with Saline -Foul Odor after Cleansing No -Anesthetic Used 5% Lidocaine Gel [Edema Assessment] -Lower Limb Edema Present No WC - Nurse 2 - General Ulcer CM Notes Start: 11/17/18 09:17 Freq: Status: Active Protocol: Activity Type Activity Date Activity User E-Sign Co-Sign Detail Recorded Client Recorded Date Recorded By Document 12/08/18 09:29 AN [email or web address] 12/08/18 09:32 AN 12/08/18 09:29 Wound Center Nurse 2 [Procedure/Treatment] #3 left plantar trauma -Time 09:31 -Correct Patient Yes -Correct Side, Site, Position Yes -Correct Procedure Yes -Procedure Performed Yes -Type of Procedure Debridement -Clinical Debridement Subcutaneous -Post Debridement Size (cm) - Length 0.5 -Post Debridement Size (cm) - Width 0.2 -Post Debridement Size (cm) - Depth 0.2 -Total Square Cm 0.10 -Wound/Ulcer Outcome Not Healed -Ulcer Cleansing Rinsed/ Irrigated with Saline -Foul Odor after Cleansing No -Bioengineered Tissue No -Bleeding Controlled with Pressure -Offloading Yes -Type of Offloading Surgical Shoe -Treatment Response Procedure Tolerated Well [See Physician Procedure note for Specifics] Pain Scale: 0-10 Numeric [Pain] -Is Patient Pain Free? Yes Musculoskeletal: No Tenderness to Palpation of Joints or Extremities, Muscle Wasting Neurological: - - Lack of normal epicritic sensation light touch assist with neuropathy Psych/Mental Status: Normal Affect, Appropriate Debridement Note Post-Debridement Measurements/Treatment WC - Nurse 2 - General Ulcer CM Notes Start: 11/17/18 09:17 Freq: Status: Active Protocol: Activity Type Activity Date Activity User E-Sign Co-Sign Detail Recorded Client Recorded Date Recorded By Document 11/17/18 09:31 DL [id number] 11/17/18 09:32 DL Document 12/01/18 09:53 AN [id number] 12/01/18 09:55 AN Document 12/08/18 09:29 AN [id number] 12/08/18 09:32 AN 11/17/18 12/01/18 12/08/18 09:31 09:53 09:29 Wound Center Nurse 2 #3 left plantar trauma -Time 09:54 09:31 -Correct Patient Yes Yes -Correct Side, Site, Position Yes Yes -Correct Procedure Yes Yes -Procedure Performed No Yes -Type of Procedure Debridement -Clinical Debridement Subcutaneous -Post Debridement Size (cm) - Length 0.5 -Post Debridement Size (cm) - Width 0.2 -Post Debridement Size (cm) - Depth 0.2 -Total Square Cm 0.10 -Wound/Ulcer Outcome Not Healed Not Healed -Ulcer Cleansing Rinsed/ Rinsed/ Irrigated with Irrigated with Saline Saline -Foul Odor after Cleansing No No -Bioengineered Tissue No No -Bleeding Controlled with Pressure -Offloading Yes Yes -Type of Offloading Surgical Shoe Surgical Shoe -Treatment Response Procedure Procedure Tolerated Well Tolerated Well #2 right DFU plantar -Time 09:32 -Correct Patient Yes -Correct Side, Site, Position Yes -Correct Procedure Yes -Procedure Performed Yes -Type of Procedure Debridement -Clinical Debridement Subcutaneous -Post Debridement Size (cm) - Length 0.5 -Post Debridement Size (cm) - Width 0.5 -Post Debridement Size (cm) - Depth 0.1 -Total Square Cm 0.25 -Wound/Ulcer Outcome Not Healed -Ulcer Cleansing Rinsed/ Irrigated with Saline -Foul Odor after Cleansing No -Bioengineered Tissue No -Bleeding Controlled with Pressure -Offloading Yes -Type of Offloading Surgical Shoe -Treatment Response Procedure Tolerated Well Pain Scale: 0-10 Numeric Is Patient Pain Free? Yes Yes Yes Wound debrided: plantar foot Laterality: Left Wound Grade/Stage: grade 1 Anesthesia Used: 5% Lidocaine Gel Depth: in the subcutaneous layer Percentage of wound debrided: 100 Instrument Used: #15 blade Tissue Removed: fibrous, devitalized subcutaneous tissue, biofilm, slough Severity: Fat Layer Exposed Amount of bleeding with debridement: Mild Bleeding Controlled with: Pressure Patient tolerated procedure well Assessment/Plan Active Problems (Last Updated 10/13/18 @ 12:23 by Soumya Quiroga) Former smoker (Chronic) Z87.891 Chronic ulcer of left foot with fat layer exposed (Acute) Type 1 diabetes, uncontrolled, with neuropathy (Chronic) Malnutrition (Chronic) Assessment: Left foot ulcer grade 1, no infection. ruled out small vessel disease or proximal occlusion of peripheral vascular disease. Hammer digit syndrome left foot. Delayed healing. Malnutrition. Type 1 diabetes with peripheral neuropathy Plan: I reviewed and discussed his case and his previous work-up. Debridement was performed today as noted in the clinical panel and Eleni was applied. I recommend total contact cast and he is amendable. Verbal consent was obtained and this was applied according to standard protocol and a well-padded neutral manner. He tolerated this well. He was advised to keep this clean, dry, and intact until follow-up next week. To call the clinic if he has any problems. He appears to have adequate perfusion for healing with normal ABIs. The noninva sive vascular studies were discussed in detail with him previously. His left foot is healed today with full epithelialization. To discontinue dressing care. He is reassured no local signs of infection or new ulcer sites are noted. I have prescribed him Daniel nutritional supplementation optimize healing. I answered his questions. To return to the wound healing center 1 week or call sooner if there are any questions or concerns.
== END 2018-12-11 23:59 ==
LOC: WC 09:00
PROVIDERS: Family Provider Family Medicine; PCP Family Medicine; Referring Provider Podiatrist; Visit Provider Podiatrist
DX: E10.621 Type 1 diabetes mellitus with foot ulcer (principal); Z87.891 Personal history of nicotine dependence; L97.522 Non-pressure chronic ulcer of other part of left foot with fat layer exposed; E10.42 Type 1 diabetes mellitus with diabetic polyneuropathy; E10.65 Type 1 diabetes mellitus with hyperglycemia; L97.512 Non-pressure chronic ulcer of other part of right foot with fat layer exposed; E10.51 Type 1 diabetes mellitus with diabetic peripheral angiopathy without gangrene; M20.42 Other hammer toe(s) (acquired), left foot
CPT/HCPCS: 11042; 99212; G0463

== ENCOUNTER 2018-12-22 09:00 | Outpatient (RCR) | payer BC, SELFPAY ==
[2018-12-12 00:16] VITALS: BP 100/64; PULSE 80; RESP 18; TEMP 36
[2018-12-15 09:30] VITALS: BP 105/69; PULSE 73; RESP 18; TEMP 35.6; BMI 21.1
--- NOTE | 2018-12-15 10:23 | PCM.WC.PN ---
(1) Chronic ulcer of left foot with fat layer exposed Status: Acute Current Visit: Yes Code(s): L97.522 - Non-pressure chronic ulcer of other part of left foot with fat layer exposed (2) Type 1 diabetes, uncontrolled, with neuropathy Status: Chronic Current Visit: Yes Code(s): E10.40 - Type 1 diabetes mellitus with diabetic neuropathy, unspecified; E10.65 - Type 1 diabetes mellitus with hyperglycemia (3) Malnutrition Status: Chronic Current Visit: Yes Code(s): E46 - Unspecified protein-calorie malnutrition (4) Delayed wound healing Status: Chronic Current Visit: Yes Code(s): T14.8XXD - Other injury of unspecified body region, subsequent encounter (5) Hammer toe of left foot Status: Chronic Current Visit: Yes Code(s): M20.42 - Other hammer toe(s) (acquired), left foot Type of Wound Date of Service: 12/15/18 Chief Complaint: Left foot ulcer History of Wound: This 53-year-old male with diabetes returns to the wound healing center for left ball of foot ulcer. He denies fever, chill, nausea, vomiting, new injuries, redness or odor. He denies drainage and thinks his ulcer site has healed. He denies redness or odor. He denies known trauma. He denies redness or odor. He kept his total contact cast intact last week. He is not amendable to proceed with another application this week. Progress of Wound: Improving - Physical Exam Vital Signs Temp Pulse Resp BP 96.0 F L 73 18 105/69 12/15/18 09:30 12/15/18 09:30 12/15/18 09:30 12/15/18 09:30 General: Alert, Oriented x3, Cooperative, No apparent distress Extremities: No cyanosis, Capillary Refill Less than 3 Seconds, No Calf Tenderness, Diminished Peripheral Pulses Skin: Ulcer/ Wound - No purulence, erythema, streaking, odor, infection. The peripheral skin is hairless and atrophic. Peripheral epithelialization is noted compared to last week Wound Measurements and Assessment WC - Nurse 1 - General Ulcer Measurement Start: 12/15/18 09:30 Freq: Status: Active Protocol: Activity Type Activity Date Activity User E-Sign Co-Sign Detail Recorded Client Recorded Date Recorded By Document 12/15/18 09:30 [email or web address] 12/15/18 09:31 12/15/18 09:30 Wound Center Nurse 1 [Ulcer Assessment] #3 left plantar trauma -Combined with other wound No -Current Size (cm) - Length 0.2 -Current Size (cm) - Width 0.1 -Current Size (cm) - Depth 0.3 -Total Square Cm 0.02 -Photo Taken No -Epithelialization Medium 34-66% -Tunneling No -Undermining/Tunneling No -Circular Undermining No -Exudate Amt Small -Exudate Type Serosanguineous -Wound Margin Flat & Intact -Granulation Amt Small (1-33%) -Granulation Quality [place] -Slough/Fibrin Yes -Necrosis Amt Large (67-100%) -Necrotic Tissue Type Adherent Slough -Structure Exposed N/A -Texture (Tanesha-wound Skin Appearance) Assessed,Callus -Moisture (Tanesha-wound Skin Appearance Assessed,Dry/ ) Scaly -Color (Tanesha-wound Skin Appearance) Assessed -Temperature (Tanesha-wound Skin No Abnormality Appearance) (Pt Warm) -Tenderness on Palpation (Tanesha-wound No Skin Appearance) -Ulcer Cleansing Wound Cleanser -Foul Odor after Cleansing No -Anesthetic Used 5% Lidocaine Gel [Edema Assessment] -Lower Limb Edema Present No WC - Nurse 2 - General Ulcer CM Notes Start: 12/15/18 09:30 Freq: Status: Active Protocol: Activity Type Activity Date Activity User E-Sign Co-Sign Detail Recorded Client Recorded Date Recorded By Document 12/15/18 09:44 AN [id number] 12/15/18 09:47 AN 12/15/18 09:44 Wound Center Nurse 2 [Procedure/Treatment] #3 left plantar trauma -Time 09:45 -Correct Patient Yes -Correct Side, Site, Position Yes -Correct Procedure Yes -Procedure Performed Yes -Type of Procedure Debridement -Clinical Debridement Subcutaneous -Post Debridement Size (cm) - Length 0.5 -Post Debridement Size (cm) - Width 0.2 -Post Debridement Size (cm) - Depth 0.2 -Total Square Cm 0.10 -Wound/Ulcer Outcome Not Healed -Ulcer Cleansing Rinsed/ Irrigated with Saline -Foul Odor after Cleansing No -Bioengineered Tissue No -Bleeding Controlled with Pressure -Offloading Yes -Type of Offloading Surgical Shoe -Treatment Response Procedure Tolerated Well [See Physician Procedure note for Specifics] Pain Scale: 0-10 Numeric [Pain] -Is Patient Pain Free? Yes Musculoskeletal: No Tenderness to Palpation of Joints or Extremities, Muscle Wasting, - - Dorsal contraction lesser digits with prominent metatarsal heads Neurological: - - Lack of epicritic sensation noted to light touch consistent with neuropathy Psych/Mental Status: Normal Affect, Appropriate Debridement Note Post-Debridement Measurements/Treatment WC - Nurse 2 - General Ulcer CM Notes Start: 12/15/18 09:30 Freq: Status: Active Protocol: Activity Type Activity Date Activity User E-Sign Co-Sign Detail Recorded Client Recorded Date Recorded By Document 12/15/18 09:44 AN [id number] 12/15/18 09:47 AN 12/15/18 09:44 Wound Center Nurse 2 #3 left plantar trauma -Time 09:45 -Correct Patient Yes -Correct Side, Site, Position Yes -Correct Procedure Yes -Procedure Performed Yes -Type of Procedure Debridement -Clinical Debridement Subcutaneous -Post Debridement Size (cm) - Length 0.5 -Post Debridement Size (cm) - Width 0.2 -Post Debridement Size (cm) - Depth 0.2 -Total Square Cm 0.10 -Wound/Ulcer Outcome Not Healed -Ulcer Cleansing Rinsed/ Irrigated with Saline -Foul Odor after Cleansing No -Bioengineered Tissue No -Bleeding Controlled with Pressure -Offloading Yes -Type of Offloading Surgical Shoe -Treatment Response Procedure Tolerated Well Pain Scale: 0-10 Numeric Is Patient Pain Free? Yes Wound debrided: plantar foot Laterality: Left Wound Grade/Stage: grade 1 Type of Debridement: Excisional debridement Anesthesia Used: 5% Lidocaine Gel Depth: in the subcutaneous layer Percentage of wound debrided: 100 Instrument Used: #15 blade Tissue Removed: fibrous, devitalized subcutaneous, biofilm, slough Severity: Fat Layer Exposed Amount of bleeding with debridement: Mild Bleeding Controlled with: Pressure Patient tolerated procedure well Assessment/Plan Active Problems (Last Updated 10/13/18 @ 12:23 by Soumya Quiroga) Chronic ulcer of left foot with fat layer exposed (Acute) Type 1 diabetes, uncontrolled, with neuropathy (Chronic) Malnutrition (Chronic) Delayed wound healing (Chronic) Hammer toe of left foot (Chronic) Assessment: Left foot ulcer grade 1, no infection. ruled out small vessel disease or proximal occlusion of peripheral vascular disease. Hammer digit syndrome left foot. Delayed healing. Malnutrition. Type 1 diabetes with peripheral neuropathy Plan: I reviewed and discussed his case and his previous work-up. Debridement was performed today as noted in the clinical panel and Eleni was applied. I recommend total contact cast and he is amendable to consider this next week if needed and he is going to take this upcoming week off from the cast. To change dressing daily with Eleni. He appears to have adequate perfusion for healing with normal ABIs. The noninvasive vascular studies were discussed in detail with him previously. His left foot is healed today with full epithelialization. To discontinue dressing care. He is reassured no local signs of infection or new ulcer sites are noted. I have prescribed him Daniel nutritional supplementation optimize healing. I answered his questions. To return to the wound healing center 1 week or call sooner if there are any questions or concerns.
[2018-12-22 09:14] VITALS: BP 107/62; PULSE 73; RESP 16; TEMP 35.9; BMI 21.1
--- NOTE | 2018-12-22 09:57 | PCM.WC.PN ---
(1) Chronic ulcer of left foot with fat layer exposed Status: Chronic Code(s): L97.522 - Non-pressure chronic ulcer of other part of left foot with fat layer exposed (2) Type 1 diabetes, uncontrolled, with neuropathy Status: Chronic Code(s): E10.40 - Type 1 diabetes mellitus with diabetic neuropathy, unspecified; E10.65 - Type 1 diabetes mellitus with hyperglycemia (3) Hammer toe of left foot Status: Chronic Code(s): M20.42 - Other hammer toe(s) (acquired), left foot Type of Wound Date of Service: 12/22/18 Chief Complaint: Left foot ulcer History of Wound: This 53-year-old male with diabetes returns to the wound healing center for left ball of foot ulcer. He denies fever, chill, nausea, vomiting, new injuries, redness or odor. He denies drainage and thinks his ulcer site has healed. He denies redness or odor. He denies known trauma. He denies redness or odor. Progress of Wound: Healed - Physical Exam Vital Signs Temp Pulse Resp BP 96.6 F L 73 16 107/62 12/22/18 09:14 12/22/18 09:14 12/22/18 09:14 12/22/18 09:14 General: Alert, Oriented x3, Cooperative, No apparent distress Extremities: No cyanosis, No edema, Capillary Refill Less than 3 Seconds, No Calf Tenderness - Negative Brianna and Carter signs, Peripheral Pulses Normal, - - Dorsal contracture lesser digits with prominent metatarsal head Skin: Ulcer/ Wound - Full epithelialization is noted and there is no longer ulcer. There is no purulence, erythema, streaking, odor, or infection. His skin is atrophic in general. Wound Measurements and Assessment WC - Nurse 1 - General Ulcer Measurement Start: 12/15/18 09:30 Freq: Status: Active Protocol: Activity Type Activity Date Activity User E-Sign Co-Sign Detail Recorded Client Recorded Date Recorded By Document 12/22/18 09:14 [facility] [id number] 12/22/18 09:18 [facility] 12/22/18 09:14 Wound Center Nurse 1 [Ulcer Assessment] #3 left plantar trauma -Combined with other wound No -Current Size (cm) - Length 0.1 -Current Size (cm) - Width 0.1 -Current Size (cm) - Depth 0.1 -Total Square Cm 0.01 -Photo Taken No -Epithelialization Large 67-100% -Tunneling No -Undermining/Tunneling No -Circular Undermining No -Exudate Amt None Present -Texture (Tanesha-wound Skin Appearance) Callus,Scarring -Moisture (Tanesha-wound Skin Appearance Assessed,Dry/ ) Scaly -Color (Tanesha-wound Skin Appearance) Assessed -Temperature (Tanesha-wound Skin No Abnormality Appearance) (Pt Warm) -Tenderness on Palpation (Tanesha-wound No Skin Appearance) -Ulcer Cleansing Rinsed/ Irrigated with Saline -Foul Odor after Cleansing No -Anesthetic Used 5% Lidocaine Gel WC - Nurse 2 - General Ulcer CM Notes Start: 12/15/18 09:30 Freq: Status: Active Protocol: Activity Type Activity Date Activity User E-Sign Co-Sign Detail Recorded Client Recorded Date Recorded By Document 12/22/18 09:31 AN [id number] 12/22/18 09:32 AN 12/22/18 09:31 Pain Scale: 0-10 Numeric [Pain] -Is Patient Pain Free? Yes Musculoskeletal: No Tenderness to Palpation of Joints or Extremities, Muscle Wasting Neurological: - - Lack of normal epicritic sensation light touch is consistent with neuropathy Psych/Mental Status: Normal Affect, Appropriate Debridement Note Post-Debridement Measurements/Treatment WC - Nurse 2 - General Ulcer CM Notes Start: 12/15/18 09:30 Freq: Status: Active Protocol: Activity Type Activity Date Activity User E-Sign Co-Sign Detail Recorded Client Recorded Date Recorded By Document 12/15/18 09:44 AN [id number] 12/15/18 09:47 AN Document 12/22/18 09:31 AN [id number] 12/22/18 09:32 AN 12/15/18 12/22/18 09:44 09:31 Wound Center Nurse 2 #3 left plantar trauma -Time 09:45 -Correct Patient Yes -Correct Side, Site, Position Yes -Correct Procedure Yes -Procedure Performed Yes -Type of Procedure Debridement -Clinical Debridement Subcutaneous -Post Debridement Size (cm) - Length 0.5 -Post Debridement Size (cm) - Width 0.2 -Post Debridement Size (cm) - Depth 0.2 -Total Square Cm 0.10 -Wound/Ulcer Outcome Not Healed -Ulcer Cleansing Rinsed/ Irrigated with Saline -Foul Odor after Cleansing No -Bioengineered Tissue No -Bleeding Controlled with Pressure -Offloading Yes -Type of Offloading Surgical Shoe -Treatment Response Procedure Tolerated Well Pain Scale: 0-10 Numeric Is Patient Pain Free? Yes Yes No debridement was completed today - healed Assessment/Plan Assessment: Left foot ulcer grade 1 -healed today. ruled out small vessel disease or proximal occlusion of peripheral vascular disease. Hammer digit syndrome left foot. Type 1 diabetes with peripheral neuropathy Plan: I reviewed and discussed his case and his previous work-up. His ulcer site has healed and therefore no debridement was performed. He was advised to discontinue dressing care and nutritional supplementation. He was advised to monitor for ulcer recurrence or signs of infection in which neither is noted today. He was advised the skin will take several months to remodel and he should watch this friable site closely. To progress back into extra-depth diabetic type shoes and to follow-up at the foot [facility] ankle center. He is discharged from the wound healing center today. To check feet daily and maintain good foot hygiene. I answered all his questions.
== END 2019-01-10 23:59 ==
LOC: WC 09:00
PROVIDERS: Family Provider Family Medicine; PCP Family Medicine; Referring Provider Podiatrist; Visit Provider Podiatrist
DX: E10.621 Type 1 diabetes mellitus with foot ulcer (principal); L97.522 Non-pressure chronic ulcer of other part of left foot with fat layer exposed; M20.42 Other hammer toe(s) (acquired), left foot; E10.65 Type 1 diabetes mellitus with hyperglycemia; E10.42 Type 1 diabetes mellitus with diabetic polyneuropathy; E10.51 Type 1 diabetes mellitus with diabetic peripheral angiopathy without gangrene
CPT/HCPCS: 11042; 99212; G0463

== ENCOUNTER 2020-06-26 15:47 | Outpatient (RCR) | payer MEDICARE, SELFPAY ==
[2020-06-26] MEDS: COVID-19 VACC, MRNA(PFIZER)/PF 30 MCG/0.3 ML SYRINGE IM (07:48)
[2020-07-17] MEDS: COVID-19 VACC, MRNA(PFIZER)/PF 30 MCG/0.3 ML SYRINGE IM (07:25)
== END 2020-09-18 23:59 ==
LOC: IMMUN 15:47
PROVIDERS: PCP Family Medicine; Referring Provider Family Medicine; Visit Provider Family Medicine
DX: Z23 Encounter for immunization (principal)
CPT/HCPCS: 0001A; 0002A; 91300

== ENCOUNTER 2022-07-20 20:24 | Emergency (ER) | payer MEDICARE, SELFPAY ==
[2022-07-20 20:25] VITALS: BP 117/77; PULSE 83; RESP 16; TEMP 36.6; O2SAT 100; BMI 19.8
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
--- NOTE | 2022-07-20 20:42 | CT_ITS ---
We are attempting to reach an attending provider to discuss findings. An addendum with communication details will be sent when the communication is complete. EXAM: CT CHEST, ABDOMEN AND PELVIS WITH INTRAVENOUS CONTRAST CLINICAL INDICATION: abdominal pain -- TRAUMA ONLY: IV Contrast. Dont wait for creatinine TECHNIQUE: Helically acquired images were obtained of the chest, abdomen and pelvis with intravenous contrast. This CT exam was performed using one or more of the following dose reduction techniques: automated exposure control, adjustment of the mA and/or kV according to patient size, and/or use of iterative reconstruction technique. This report was created using [employer] report [employer] technology. CONTRAST: IV 100mL Isovue-370 COMPARISON: None. FINDINGS: CHEST: LUNGS AND PLEURAL SPACES: Unremarkable. No mass. No pleural effusion or thickening. No pneumothorax. No pulmonary contusion. HEART: Unremarkable. Heart size is normal. No pericardial effusion. No significant coronary artery calcifications. MEDIASTINUM: Unremarkable. No mediastinal or hilar adenopathy. Esophagus is unremarkable. No hiatal hernia. No mediastinal hematoma. THYROID: Unremarkable. No thyroid lesions. ABDOMEN: LIVER: Small focus of bright enhancement measuring 1 cm within the anterior segment of the right hepatic lobe which remains bright on portal venous phase imaging. GALLBLADDER AND BILE DUCTS: Unremarkable. No calcified gallstones. No gallbladder distention or wall edema. No intra- or extrahepatic biliary ductal dilation. PANCREAS: Unremarkable. No focal cystic or solid mass. SPLEEN: Unremarkable. Normal size without focal cystic or solid mass. ADRENALS: Unremarkable. No nodules. KIDNEYS AND URETERS: Unremarkable. Normal renal size and position. No hydronephrosis. STOMACH AND BOWEL: Unremarkable. No stomach or bowel distention. No focal inflammatory change. PELVIS: APPENDIX: No evidence of acute appendicitis. BLADDER: Unremarkable. REPRODUCTIVE: Unremarkable as visualized. No mass. CHEST, ABDOMEN and PELVIS: INTRAPERITONEAL SPACE: Unremarkable. No free air. No hemoperitoneum. RETROPERITONEAL SPACE: Unremarkable. No blood in the retroperitoneum. BONES/JOINTS: Unremarkable. No suspicious lytic or blastic abnormality. No fracture. SOFT TISSUES: Unremarkable. No discrete abdominal or pelvic wall hernia. VASCULATURE: No aortic injury. LYMPH NODES: Unremarkable. No enlarged lymph nodes. CT/CT Chest, Abd, Pel w/Contrast IMPRESSION: 1. Small focus of bright enhancement measuring 1 cm within the anterior segment of the right hepatic lobe which remains bright on portal venous phase imaging. This is concerning for a small vascular injury from a branch of the right hepatic artery. (Grade III injury: Vascular injury with active bleeding contained within the liver parenchyma.) A small hemangioma is possible but considered less likely given the enhancement pattern. Follow-up is recommended. 2. No other acute injuries identified in the chest abdomen or pelvis. Electronically Signed: Jak Barreto MD at 22:04 EDT ,
[2022-07-20] MEDS: Ondansetron 4 MG/2 ML Vial IV (21:00)
[2022-07-20] MEDS: Morphine 4 MG/ML Syringe IV (21:00)
[2022-07-20 21:10] LABS: Absolute Lymphocyte Count 0.89 X10^3/uL (0.83-4.51); Absolute Neutrophil Count 3.3 X10^3/uL (2.0-7.7); Basophil# 0.02 X10^3/uL; Basophil% 0.4 % (0-1); Eosinophil# 0.08 X10^3/uL; Eosinophils% 1.7 % (0-5); Hematocrit 41.5 % (40-54); Hemoglobin 13.7 g/dL (13.0-16.5); Lymphocyte # 0.89 X10^3/ul (0.83-4.51); Lymphocyte % 18.7 % (19-41); Mean Corpuscular Hgb 29.5 pg (27.0-32.0); Mean Corpuscular Volume 89.2 fL (80-94); Mean Platelet Vol. 10.4 fl (6.2-12.0); Monocyte# 0.47 X10^3/uL; Monocyte% 9.9 % (0-10); NRBC Flagged by Analyzer 0 % (0-5); Neutrophil # 3.29 X10^3/uL (2.7-7.7); Neutrophil % 69.1 % (47-70); Platelet Count 182 K/mm3 (150-450); RBC Distribution Width CV 12.5 % (11.6-14.6); Red Blood Count 4.65 M/mm3 (4.6-6.2); White Blood Count 4.8 K/mm3 (4.4-11.0)
[2022-07-20 21:27] LABS: ALB/GLOB Ratio 1.3 RATIO (0.9-2.4); AST(SGOT) 28 U/L (15-37); Alanine Aminotransfer ALT/SGPT 39 U/L (16-61); Albumin, Serum 3.5 g/dL (3.2-5.0); Alkaline Phosphatase 89 U/L (45-117); Anion Gap 5 (5-15); BUN 14 mg/dL (7-18); BUN/Creat Ratio 14.1 RATIO (10-20); Calcium,Total 8.9 mg/dL (8.5-10.1); Chloride 99 mmol/L (98-107); Creatinine, Serum 0.99 mg/dL (0.70-1.30); EST Glomerular Filtration Rate 83 mL/min (>60); Est Glom Filt Rate - Afr Amer 101 mL/min (>60); Estimated Creatinine Clearance 90.55 ml/min; Globulin 2.7 g/dL (2.2-4.2); Glucose 364 mg/dL (74-106); Potassium 4.7 mmol/L (3.5-5.1); Protein, Total 6.2 g/dL (6.4-8.2); Sodium Level 135 mmol/L (136-145)
--- NOTE | 2022-07-20 21:30 | RAD_ITS ---
EXAM: XR RIGHT WRIST COMPLETE, 3 OR MORE VIEWS CLINICAL INDICATION: pain TECHNIQUE: Frontal, lateral and oblique views of the right wrist. This report was created using [employer] report generation technology. COMPARISON: None. FINDINGS: BONES/JOINTS: Oblique fracture of the distal ulna extending into the ulnar styloid. Preservation of the joint space. No sclerotic or destructive changes observed. SOFT TISSUES: Ulnar soft tissue swelling. No radiopaque foreign body. VASCULATURE: Arterial calcifications. RAD/Wrist min 3 Views IMPRESSION: Oblique fracture of the distal ulna extending into the ulnar styloid. Electronically Signed: Jak Barreto MD at 22:06 EDT ,
--- NOTE | 2022-07-20 21:30 | RAD_ITS ---
EXAM: XR RIGHT FOREARM, 2 VIEWS CLINICAL INDICATION: pain TECHNIQUE: Frontal and lateral views of the right forearm. This report was created using [employer] report generation technology. COMPARISON: None. FINDINGS: BONES/JOINTS: Oblique fracture of the distal ulna extending into the ulnar styloid. No dislocation. SOFT TISSUES: Ulnar soft tissue swelling. VASCULATURE: Arterial calcifications. RAD/Forearm 2 Views IMPRESSION: Oblique fracture of the distal ulna extending into the ulnar styloid. Electronically Signed: Jak Barreto MD at 22:05 EDT ,
[2022-07-20] MEDS: Ketorolac 15 MG/ML Vial IV (22:00)
--- NOTE | 2022-07-20 22:29 | ED.RN ---
Report given to Darien REN at [facility].
[2022-07-20 22:37] VITALS: BP 136/82; PULSE 79; RESP 20; TEMP 36.4; O2SAT 100
== END 2022-07-20 23:52 | disposition other institution (70) ==
PROVIDERS: Physician Assistant; Emergency Provider Emergency Medicine; PCP Family Medicine; Visit Provider Emergency Medicine
DX: S52.601A Unspecified fracture of lower end of right ulna, initial encounter for closed fracture (principal); E10.65 Type 1 diabetes mellitus with hyperglycemia; F17.210 Nicotine dependence, cigarettes, uncomplicated; S20.212A Contusion of left front wall of thorax, initial encounter; I10 Essential (primary) hypertension; S36.116A Major laceration of liver, initial encounter; V84.5XXA Driver of special agricultural vehicle injured in nontraffic accident, initial encounter
CPT/HCPCS: 29125; 71260; 73090; 73110; 74177; 80053; 85025; 96374; 96375; 99285; Q9967; A4216; J2405

== ENCOUNTER 2022-11-07 10:27 | Day surgery (SDC) | payer MEDICARE, SELFPAY ==
[2022-11-07] VITALS (8 sets, daily range): BP systolic 117–130; BP diastolic 73–83; PULSE 67–76; RESP 12–16; TEMP 36.2–37; O2SAT 97–100; BMI 19.3
[2022-11-07] MEDS: Lactated Ringers 1,000 ML 15 ML IV (10:54)
[2022-11-07 10:58] LABS: Bedside Glucose 299 mg/dL (74-106)
--- NOTE | 2022-11-07 11:16 | DCINST_ITS ---
Discharge Instructions Diet Discharge Diet: No restrictions Activity Discharge Activity: May Not Drive, May Shower (Please utilize cast bag covering when showering to keep dressings clean, dry, and intact) and Use Crutches (Please remain nonweightbearing to the right foot with the assistance of crutches) Weight Bearing Status: No weight bearing (Please remain nonweightbearing to the right foot and crutches and surgical shoe) Keep extremity elevated above heart level: Right Leg (Please elevate right leg at all times of rest to control postoperative edema) Dressing / Incision Call your doctor if you observe: Fever of 101 or Higher, Shortness of breath, Chest pain, Calf discomfort and Uncontrolled pain Change Dressing in: do not change dressing (Please keep dressing clean, dry, and intact to the right foot) Remove Dressing in: leave in place till F/U (Please leave dressings intact physician will change dressing at first postop appointment.) Cleanse incision/area with: Do not get Incision Wet and Keep Dressing Clean & Dry Follow Up Care Please Follow Up With: Redd William DPM When: Patient has first postoperative appointment in office next week Test Results: Test results from this visit will be discussed in further detail at your follow- up appointment, if applicable. Discharge Plan Admission Attending Provider: Redd William Primary Care Provider: Amrik Bautista Discharge Orders/Prescriptions Prescriptions: New doxycycline hyclate 100 mg capsule 100 mg PO DAILY Qty: 10 0RF oxycodone-acetaminophen 5-325 mg tablet 1 tab PO Q8H PRN (Reason: pain) 7 Days Qty: 28 0RF No Action atorvastatin 20 MG tablet 20 mg PO QHS pantoprazole 20 MG tablet 20 mg PO DAILY insulin aspart U-100 [Novolog FlexPen U-100 Insulin] 100 UNITS/ML insulin pen 6 unit subcut TIDCM Rx Instructions: 6 units with meals metoprolol tartrate 25 MG tablet 25 mg PO BID insulin glargine [Lantus Solostar U-100 Insulin] 100 UNITS/ML insulin pen 18 units subcut QHS Rx Instructions: 18 units at bedtime aspirin 81 MG tablet,chewable 81 mg BC DAILY bupropion HCl 300 MG tablet extended release 24 hr 300 mg PO DAILY venlafaxine 150 MG tablet extended release 24hr 150 mg PO DAILY trazodone 100 mg tablet 100 mg PO QHS Referrals / Follow Up: Amrik Bautista MD [Primary Care Provider] - Disposition Disposition (needs filled in before D/C Order can be placed): Home, Self Care
[2022-11-07 11:34] LABS: Bedside Glucose 278 mg/dL (74-106)
--- NOTE | 2022-11-07 11:43 | RAD_ITS ---
STUDY: X-RAY RIGHT FOOT, 1 TOE REASON FOR EXAM: Male, 56 years old. PAIN TECHNIQUE: 2 view(s) of the toe were obtained. COMPARISON: None. FINDINGS: 27 seconds of fluoroscopy of the first digit was utilized cell room operator room during cheilectomy and 19 images submitted for interpretation. . RAD/Toe(s) Min 2 Views IMPRESSION: Fluoroscopy during cheilectomy. Electronically Signed: Monster Kingsley MD at 23:26 EDT ,
--- NOTE | 2022-11-07 11:45 | BON_PTH ---
PATIENT: MAR IBRAHIM LOC: [facility] [place] U#:[id number] AGE/SX: 56/M ROOM: RE11/07/[address]: Dr. Redd William DPM : 1965 BED: DIS: 11/07/2022 SPEC #: [id number] RECD: 11/07/22 14:27 STATUS: LARUA REQ #: [id number] BRANDON: 11/07/22 11:[address]: Redd William DEPT: SURGICAL PATHOLOGY RECD BY: Sindhu Velez ENTERED: 11/10/22 09:29 SP TYPE: Bone OTHR DR: Dr. Amrik Bautista MD Tissues: Bone of foot, NOS Procedures: Decalcification bone/plaque Surgery Specimen Level IV HEADER OPERATION: Cheilectomy of right first metatarsophalangeal joint PRE-OP DIAGNOSIS: Right bone spur TISSUE SUBMITTED: Right first metatarsal bone MICROSCOPIC DIAGNOSIS Right first metatarsal bone, excision: Reparative and reactive change consistent with bone spur. AM:marlene 11/13/2022 MICROSCOPIC DESCRIPTION Slides are reviewed. GROSS DESCRIPTION Received in fixative is one container labeled with the patient's name and designated bone right first metatarsal. The specimen consists of three variable sized pieces of bone measuring in aggregate 4.0 x 2.5 x 1.0 cm. The entire specimen is submitted in two cassettes after decalcification. / SJ:marlene 11/10/2022 TC:5 CPT: 18394, 86814
[2022-11-07] MEDS: Clindamycin 900 MG/50 ML BAG 75 MG IV (11:59)
[2022-11-07] MEDS: Bupivacaine Mpf 0.5% 30 ML VIAL (13:06)
[2022-11-07] MEDS: Lidocaine 1% (30 ml sdv) 30 ML Vial (13:06)
--- NOTE | 2022-11-07 13:24 | OP.PCM_ITS ---
Problems Associated Problem List Diagnoses (1) Arthritis of first metatarsophalangeal (MTP) joint of right foot: (2) Acquired hallux limitus of right foot: Report of Operation Date of Procedure: 11/07/22 Pre-Operative Diagnosis: 1. Arthritis of the First Metatarsophalangeal joint of the Right foot 2. Hallux Limitus of the Right foot Post-Operative Diagnosis: 1. Arthritis of the First Metatarsophalangeal joint of the Right foot 2. Hallux Limitus of the Right foot Surgery/Procedure Performed:: Cheilectomy of the First Metatarsophalangeal joint of the Right foot Description of Surgical Findings:: See operative note for findings Surgeon: Redd William jewel bearing broacher: Antonette Copeland DPM PGY-1 Type of Anesthesia: Local (20 cc one-to-one mixture of 1% lidocaine plain and 0.5% Marcaine plain) and MAC Specimen's removed: Bone Right first metatarsal Drains: None Estimated Blood Loss (mL): < 10 Description of Procedure: HPI/indication: This is a 56-year-old male who presented to clinic in June 2022 for a diabetic foot exam. He points out during the examination a large portion of bone at the dorsal aspect of the first metatarsal head. Radiographs were obtained in office demonstrating osseous buildup secondary to hallux limitus and arthritic disease of the first metatarsophalangeal joint. He denies pain to the site however admits to being diabetic with neuropathy and does not feel much below his ankle. We discussed the possibility of wound breakdown secondary to rubbing on the dorsal aspect of his shoe gear. He states he does not want to deal with wound or possible infection that may lead to amputation and thus he would like to have the large osseous portion of this bone removed. I discussed the procedure with him in great detail. Discussed rationale of this procedure in detail. Discussed all risks and benefits of the procedure. Discussed risks and complications include but are not limited to the following: Pain, continued pain, complex regional pain syndrome, numbness/neuritis, infection, delayed healing/nonhealing, overcorrection/under correction, need for additional surgery, swelling, scar tissue, poor cosmetic result, recurrence, deviated toe, floating toe, difficulty wearing shoe gear, inability to wear shoe, addiction to pain medication, allergic reaction, blood clot, postoperative arthritis, loss of function, loss of limb, loss of life. Patient voices understanding of these and was able to repeat these back. Discussed all other options in detail. Patient would like to proceed with surgical intervention for removal of the osteophyte/exostosis at the dorsal aspect of the first metatarsal of the right foot. No guarantees were made. No promises were given. Consent was signed freely by patient. Patient did undergo medical clearance by his PCP prior to intervention. All diagnostic data was reviewed prior to surgical intervention. Operative limb was signed prior to entering the OR. He was scheduled to undergo cheilectomy of the right first metatarsophalangeal joint at [facility] on 11/07/2022. Surgical procedure: Under mild sedation patient brought in the operating room placed on the table in the supine position. Following induction of IV anesthetic a local anesthetic block was then performed about the base of the first metatarsal consisting of 10 cc one-to-one mixture of 1% lidocaine plain and 0.5% Marcaine plain. Next the pneumatic ankle tourniquet was placed about the patient's right ankle. The foot was then scrubbed, prepped, and draped in the usual aseptic manner. An Esmarch bandage was utilized to exsanguinate the right foot and the right foot was elevated and the pneumatic ankle tourniquet was inflated to 250 mmHg. At this time fluoroscopy was utilized in multiple views to confirm presence of dorsal exostosis of the first metatarsophalangeal joint of the right foot. Next a linear incision was made overlying the first metatarsophalangeal joint utilizing a #15 blade just medial to the extensor hallucis longus tendon. Incision was deepened through sharp and blunt dissection. Care was taken to identify all vital neurovascular structures which were retracted and protected throughout the duration of this case. The EHL tendon was identified and retracted laterally and protected throughout the duration of this case. The capsule of the first metatarsophalangeal joint was incised linearly and reflected medial and lateral giving access to the first metatarsophalangeal joint and a large dorsal exostosis/osteophyte. Upon opening of this capsule the osteophyte was noted to be fractured and fragmented into 2 pieces at the dorsal with remaining pieces plantar to this intact to the first metatarsal. These pieces were dissected out utilizing sharp dissection and then a sagittal saw was utilized to resect the remaining aspect of the dorsal exostosis. A bone rasp was utilized to smooth out all roughened margins of bone. The site was then flushed with copious amounts of normal sterile saline. Fluoroscopy was then again utilized in multiple views confirming resection of the large osteophyte/exostosis at the first metatarsal head. With no remaining rough portions of bone and all tissues healthy in appearance the site was again flushed with copious amounts of normal sterile saline. Capsule and deep structures were then closed utilizing 4-0 Vicryl. Subcutaneous tissue was closed utilizing 4-0 Monocryl. The skin was then closed in simple interrupted fashion utilizing a 3-0 Prolene. At this time the pneumatic ankle tourniquet was deflated and a prompt hyperemic response was noted to the digits of the right foot. A postoperative local anesthetic block was then performed about the proximal portion of the first metatarsal consisting of 10 cc one-to-one mixture of 1% lidocaine plain and 0.5% Marcaine plain. Incision site was then dressed with Betadine soaked Adaptic, 4 x 4 gauze, Kerlix, and a 4 inch Chaitanya wrap rolled onto the foot. The patient tolerated the anesthesia and procedure well and was transported the PACU with vital signs stable and vascular status intact to the right foot. Postoperative imaging was obtained in PACU and reviewed prior to leaving. He is instructed to keep dressings clean, dry, and intact to the right foot. He will remain nonweightbearing to the right foot in surgical shoe with assistance of crutches. These were outlined in his postoperative instructions given to him. He will follow-up in office early next week for first postoperative appointment. Grafts/Implants Used: None Complications None Admit VTE Documentation VTE Present on Admission: No VTE Mechan Device Prophylaxis: SCD's VTE Pharm Prophylaxis ordered?: No Reason prophylaxis not ordered:: Procedure Not Indicated
--- NOTE | 2022-11-07 13:35 | RAD_ITS ---
INDICATION: post-op removal excess bone/cheilectomy 1st MTPJ EXAMINATION/TECHNIQUE: X-RAY - RIGHT XR Foot Min 3 Views 3 VIEWS COMPARISON: None. FINDINGS: SOFT TISSUES: No soft tissue swelling or gas. No radiopaque foreign body. BONES/JOINTS: No acute fracture. Joint spaces anatomically aligned. Degenerative changes with significant new bone formation at the distal first metatarsal and MTP joint. No destructive changes. RAD/Foot min 3 Views IMPRESSION: Degenerative changes at the first MTP joint. Electronically Signed: En De La Garza MD at 17:09 EDT ,
== END 2022-11-07 14:50 | disposition home or self-care (01) ==
LOC: SDC 10:28 → AC 10:29
PROVIDERS: PCP Family Medicine; Referring Provider Student in an Organized Health Care Education/Training Program; Visit Provider Student in an Organized Health Care Education/Training Program
PROC: (CPT 28289; principal; 2022-11-07 11:30)
DX: M25.774 Osteophyte, right foot (principal); E10.40 Type 1 diabetes mellitus with diabetic neuropathy, unspecified; E10.65 Type 1 diabetes mellitus with hyperglycemia; Z79.4 Long term (current) use of insulin; M20.5X1 Other deformities of toe(s) (acquired), right foot; M19.071 Primary osteoarthritis, right ankle and foot; M89.8X7 Other specified disorders of bone, ankle and foot; I10 Essential (primary) hypertension; E78.2 Mixed hyperlipidemia; K21.9 Gastro-esophageal reflux disease without esophagitis; F32.A Depression, unspecified; F17.220 Nicotine dependence, chewing tobacco, uncomplicated; Z79.899 Other long term (current) drug therapy
CPT/HCPCS: 28289; 01480; 73630; 73660; 76000; 82962; 88304; 88305; 88311; J7120; J2405

== ENCOUNTER 2022-11-25 11:00 | Outpatient (RCR) | payer MEDICARE, SELFPAY ==
--- NOTE | 2022-09-05 11:17 | HP.OTEVAL_ITS ---
Patient's Visit Information MRA IBRAHIM is a 56 year old M, referred to Occupational Therapy by TRAVIS GOINS, with a diagnosis of right distal and ulnar fx.. Date of Evaluation: 09/05/22 Occupational Therapist: Madison Kay, OTR/Sue, CHT - Subjective This 56 year old male was seen for OT eval with dx of closed torus fx of distal end of right ulna. DOI 07/20/22 went to ER and sent pt to [facility] pt states no sx was needed. pt states he was in above elbow cast for 1 week and then was placed in wrist brace since. pt states he is now taking his brace off when he sits down- pt states his wrist feels vulnerable without brace. pt is now 6 weeks and 5days since DOI. pt is right handed. pts family is assisting him with all ADls and IADLs at this time. - ADLs Dressing: Socks Eating: Bring food to mouth, Use silverware, Cut food Comments: currently eating left handed Kitchen: Open jars, Open bottle caps, Lift gallon of milk Miscellaneous: Use remote control, Use cell phone, Write Comments: pt right handed. pt need assistance with all heavy activities. pt only doing light tasks keep - Pain right wrist 1 Pain Intensity Range: 8 - ROM Forearm: right supination 30*/pronation WNL left sup/pron WNL Wrist: right 50/15 left 70/45 ROM Comments: right RD [address] 20 UD 30 - Strength Global Mobility Specialist: right 10# left 70# Lateral Pinch: right unable left unable (left thumb instability) Tripod Pinch: right unable left 10# - Sensation Sensation Comments: denies - Quick DASH-Disab of Arm,Shoulder& Hand Quick DASH Score: 81.8175 - Goals Goal:ROM equal to unaffected hand: Yes Goal:Global Mobility Specialist/Pinch strength at least 75% of unaffected hand: Yes Goal:No pain with affected hand use: Yes Goal:Full use of affected hand in daily activities including: Yes - Rehabilitation General Assessment: pt demo with a decrease in right wrist ROM and weakness increasing need of assistance with all ADLs and IADls. Pt would benefit from skilled OT services 2-3x week for 6 weeks to return pt to [facility]. Today therapist ed. pt on AROM ex for wrist flex/ext and supination to light stretch. pt demo understanding and agree to POC. - Anticipated Interventions A/AAROM/PROM, Strengthening, Modalities, Joint Protection/Energy Conservation, Ergonomic Education, Education re assistive Equipment, Education re Diagnosis - Visit Plan Frequency: 2-3x /Week Duration: 6 Weeks TEXT: Thank you for the opportunity to evaluate your patient. For Medicare and Medicare HMO plans, please review the plan of care and approve it. It will need to be FAXED BACK to us at [phone] for Medicare purposes. Please let me know if there are questions or concerns regarding this plan of care. Physician Signature: Date:
--- NOTE | 2022-11-25 14:54 | HP.OTDCSUM_ITS ---
Discharge Summary D/C Summary: It has been my pleasure to treat MAR IBRAHIM under orders from TRAVIS GOINS, for the diagnosis of right distal and ulnar fx. for a total of 13 visit(s). Please see the following information for a summary of their discharge status. Overall Improvement % Improvement: 85 Objective Objective/Function: Anatomic Pathology Manager strength : R Prior 51# Current 55# L Prior 85# Current 80# Lateral pinch strength : R Prior 9# Current 12 # L Prior 15# Current 14# Tripod pinch strength : R Prior 8# Current 9 # L Prior 13# Current 11# Initial (Eval) right supination prior 30* Current 80* left is WNL Wrist: Prior (Eval) right 50/15 left 70/45 Current 65/50 Prior (Eval): right RD 15 UD 15; left RD 20 UD 30 Current 15* RD 25* UD (with some pain) Goals Patient Goals: Regain Strength Goal:ROM equal to unaffected hand: Yes Goal:Anatomic Pathology Manager/Pinch strength at least 75% of unaffected hand: Yes Goal:No pain with affected hand use: Yes Goal:Full use of affected hand in daily activities including work: Yes Plan Plan: Patient has been seen for 13 skilled OT visits status post an right distal and ulnar fracture. Pt has improved in strength and ROM (see measurements). Therapists have provided HEP for continued UE strengthening, which pt reports performing. Pt agreeable to discharge at this time. D/C Information Discharge Comments: Patient has been seen for 13 skilled OT visits status post an right distal and ulnar fracture. Pt has improved in right strength and ROM (see measurements). Therapists have provided HEP for continued UE strength ening, which pt reports performing. Pt agreeable to discharge at this time. d/c sentence: If there are questions or concerns regarding this patient's occupational therapy, please fell free to call me at [phone]. Thank you for the referral of this patient. Sincerely, Madison Kay, OTR/L, CHT
== END 2022-11-25 19:00 | disposition home or self-care (01) ==
LOC: OT 11:00
PROVIDERS: PCP Family Medicine
DX: S52.621D Torus fracture of lower end of right ulna, subsequent encounter for fracture with routine healing (principal)
CPT/HCPCS: 97110; 97140; 97166; 97530